=== PATIENT | male | born 1945 | race Caucasian/White ===

== ENCOUNTER 2017-11-12 11:33 | Emergency (ER) | payer MEDICARE, SELFPAY ==
[2017-11-12 12:02] VITALS: BP 154/74; PULSE 82; RESP 16; TEMP 36.7; O2SAT 99; BMI 23.6
[2017-11-12 12:35] LABS: AMB Influenza A Antigen Positive (Negative); AMB Influenza B Antigen Negative (Negative)
[2017-11-12 12:40] LABS: Strep Scrn Group A (Rapid) Negative (Negative)
--- NOTE | 2017-11-12 14:09 | HMH.EDGENADL ---
ED Disposition Clinical Impression: Influenza A Disposition: Home, Self-Care Condition on Discharge: Good Instructions: Influenza Additional Instructions: influenza instruction Prescriptions: Oseltamivir Phosphate [Tamiflu 75mg Capsule] 75 mg PO BID #10 capsule Referrals: Paco Wheat MD [Primary Care Provider] - - Critical Care Critical Care Time: No Attestation: On 11/12/17, the high probability of a clinically significant, sudden or life threatening deterioration of the following system(s) required my full and direct attention, intervention and personal management. The time I documented below is in addition to time spent performing reported procedures but includes the following listed in this critical care notation. Medical Decision Making Vital Signs: 11/12/17 12:02 Temperature 98.1 F Temperature Source Oral Pulse Rate [Right Radial] 82 Respiratory Rate 16 Blood Pressure [Right Arm] 154/74 Blood Pressure Mean [Right Arm] 100 Blood Pressure Source [Right Arm] Automatic Cuff Blood Pressure Position [Right Arm] Sitting 02 Sat by Pulse Oximetry 99 Oxygen Delivery Method Room Air - Lab Data influenza a positive Orders (Tests/Meds): ORDERS Category Date Time Status Strep Screen Confirmation Stat Micro 11/12/17 12:13 Received - Iain Inquiry Pt receiving controlled substance: No General Adult HPI - General Chief complaint: Ear Stated complaint: cough sore throat Mode of Arrival: Ambulatory Limitations: No Limitations Description of Symptoms (Recalled from ER Triage Doc. by RN): cough, congestion, sore throat - History of Present Illness Onset (ago): hour(s) (36) Location: head, neck, chest Radiation: non-radiation Severity: moderate Severity scale (1-10): 4 Quality: constant Consistency: constant Relieving factors: none Exacerbating factors: none Associated symptoms: cough Treatments prior to arrival: none - Related Data Previous Rx's Medication Instructions Recorded Oseltamivir Phosphate [Tamiflu 75 mg PO BID #10 cap 11/12/17 75mg Capsule] Allergies Allergy/AdvReac Type Severity Reaction Status Date / Time No Known Allergies Allergy Verified 11/12/17 12:01 [facility] History Medical History: Reports:: Diabetes Mellitus Type 2 Other Surgeries: No: Pacemaker - *Social History Alcohol Intake: never - Psychiatric History Expresses thoughts of harming self/others: None Suicide Plan Description: No Plan ROS Obtained: Yes All systems reviewed & no additional complaints except - Constitutional Reports chills - Respiratory Reports cough Physical Exam - General General appearance: alert, in no apparent distress - Head Head exam: atraumatic, normocephalic, normal inspection - Eye Eye exam: Present: normal appearance, PERRL, EOMI - ENT ENT exam: Present: normal exam, normal oropharynx, mucous membranes moist, TM's normal bilaterally, normal external ear exam - Neck Neck exam: Present: normal inspection, full ROM, trachea midline - Chest Chest inspection: Present: normal inspection, symmetric chest wall rise. Absent: tenderness - Respiratory Respiratory exam: Present: normal lung sounds bilaterally. Absent: respiratory distress - Cardiovascular Cardiovascular exam: Present: regular rate, normal rhythm. Absent: JVD - Abdominal Exam Abdominal exam: Present: soft, normal bowel sounds. Absent: distention, tenderness, guarding - Extremities Exam Extremities exam: Present: normal inspection, full ROM, normal capillary refill. Absent: calf tenderness - Back Exam Back exam: Present: normal inspection. Absent: tenderness - Neurological Exam Neurological exam: Present: alert, oriented X3 - Psychiatric Psychiatric exam: Present: normal affect, normal mood - Skin Skin exam: Present: warm, dry, intact, normal color
--- NOTE | 2017-11-12 14:12 | ED_ITS ---
ED Disposition Clinical Impression: Influenza A Disposition: Home, Self-Care Condition on Discharge: Good Instructions: Influenza Additional Instructions: influenza instruction Prescriptions: Oseltamivir Phosphate [Tamiflu 75mg Capsule] 75 mg PO BID #10 capsule Referrals: Paco Wheat MD [Primary Care Provider] - - Critical Care Critical Care Time: No Attestation: On 11/12/17, the high probability of a clinically significant, sudden or life threatening deterioration of the following system(s) required my full and direct attention, intervention and personal management. The time I documented below is in addition to time spent performing reported procedures but includes the following listed in this critical care notation. Medical Decision Making Vital Signs: 11/12/17 12:02 Temperature 98.1 F Temperature Source Oral Pulse Rate [Right Radial] 82 Respiratory Rate 16 Blood Pressure [Right Arm] 154/74 Blood Pressure Mean [Right Arm] 100 Blood Pressure Source [Right Arm] Automatic Cuff Blood Pressure Position [Right Arm] Sitting 02 Sat by Pulse Oximetry 99 Oxygen Delivery Method Room Air - Lab Data influenza a positive Orders (Tests/Meds): ORDERS Category Date Time Status Strep Screen Confirmation Stat Micro 11/12/17 12:13 Received - Iain Inquiry Pt receiving controlled substance: No General Adult HPI - General Chief complaint: Ear Stated complaint: cough sore throat Mode of Arrival: Ambulatory Limitations: No Limitations Description of Symptoms (Recalled from ER Triage Doc. by RN): cough, congestion , sore throat - History of Present Illness Onset (ago): hour(s) (36) Location: head, neck, chest Radiation: non-radiation Severity: moderate Severity scale (1-10): 4 Quality: constant Consistency: constant Relieving factors: none Exacerbating factors: none Associated symptoms: cough Treatments prior to arrival: none - Related Data Previous Rx's Medication Instructions Recorded Oseltamivir Phosphate [Tamiflu 75 mg PO BID #10 cap 11/12/17 75mg Capsule] Allergies Allergy/AdvReac Type Severity Reaction Status Date / Time No Known Allergies Allergy Verified 11/12/17 12:01 [facility] History Medical History: Reports:: Diabetes Mellitus Type 2 Other Surgeries: No: Pacemaker - *Social History Alcohol Intake: never - Psychiatric History Expresses thoughts of harming self/others: None Suicide Plan Description: No Plan ROS Obtained: Yes All systems reviewed & no additional complaints except - Constitutional Reports chills - Respiratory Reports cough Physical Exam - General General appearance: alert, in no apparent distress - Head Head exam: atraumatic, normocephalic, normal inspection - Eye Eye exam: Present: normal appearance, PERRL, EOMI - ENT ENT exam: Present: normal exam, normal oropharynx, mucous membranes moist, TM's normal bilaterally, normal external ear exam - Neck Neck exam: Present: normal inspection, full ROM, trachea midline - Chest Chest inspection: Present: normal inspection, symmetric chest wall rise. Absent : tenderness - Respiratory Respiratory exam: Present: normal lung sounds bilaterally. Absent: respira
[2017-11-12 14:22] VITALS: BP 124/70; PULSE 74; RESP 16; TEMP 37.3; O2SAT 98
== END 2017-11-12 14:27 | disposition home or self-care (01) ==
PROVIDERS: Emergency Provider Family Medicine; PCP Family Medicine
DX: J10.1 Influenza due to other identified influenza virus with other respiratory manifestations (principal); E11.9 Type 2 diabetes mellitus without complications; Z95.0 Presence of cardiac pacemaker
CPT/HCPCS: 87275; 87276; 87430; 99283

== ENCOUNTER → 2018-05-08 09:34 | Outpatient (CLI) | payer MEDICARE, SELFPAY ==
[2018-05-08 09:41] LABS: Microscopic, Urine URINE MICROSCOPIC (MICROSCOPIC)
[2018-05-08 10:15] LABS: Appearance,Urine CLEAR (Clear); Bilirubin,Urine Negative (Negative); Blood, Urine Negative (Negative); Color,Urine YELLOW (Yellow); Glucose,Urine (UA) Negative (Negative); Ketones,Urine Negative (Negative); Leukocyte Esterase,Urine Negative (Negative); Nitrate,Urine Negative (Negative); Protein,Urine TRACE (Negative); Urobilinogen,Urine 0.2 EU/dl (0.2)
[2018-05-08 10:30] LABS: Bacteria,Urine Trace /lpf; Hyaline Casts,Urine Occasional #/lpf (0); Squamous Epithelial Cell,Urine Occasional #/hpf (0-5)
[2018-05-08 11:01] LABS: Basophils % 0.7 % (0.1-2.0); Eosinophils # 0.4 K/mm3 (0.0-0.4); Hematocrit 43.2 % (42.0-52.0); Hemoglobin 13.7 g/dL (14.1-18.0); Lymphocytes # 1.7 K/mm3 (0.7-4.5); Lymphocytes % 27.5 K/mm3 (10-50); Mean Corpuscular HGB Conc 31.7 g/dL (31.8-35.4); Mean Corpuscular Hemoglobin 30.6 pg (27.0-31.2); Mean Corpuscular Volume 96.6 fl (80-94); Mean Platelet Volume 7.1 fl (7.4-10.4); Monocytes # 0.4 K/mm3 (0.1-1.0); Monocytes % 6.5 % (1.7-9.3); Neutrophils # 3.6 K/mm3 (1.8-7.8); Neutrophils % 59.2 % (37.0-80.0); Platelet Count 241 K/mm3 (142-424); Red Blood Count 4.48 M/mm3 (4.60-6.20); Red Cell Distribution Width 13.2 % (11.5-17.5)
[2018-05-08 12:53] LABS: Creatinine,Urine Random 137 mg/dL (20-320); Total Protein,Urine Random 31.3 mg/dL (0.0-11.9)
[2018-05-08 17:03] LABS: Albumin Level 4.2 gm/dL (3.4-5.0); Anion Gap 13.3 mEq/L (5-15); Blood Urea Nitrogen 27 mg/dL (7-18); Calcium 9.2 mg/dL (8.5-10.1); Carbon Dioxide 28 mmol/L (21.0-32.0); Chloride 103 mmol/L (98-107); Creatinine,Serum 1.73 mg/dL (0.70-1.30); Estimated Glomerular Filt Rate 39 ml/min (>60); GFR (African American) 47 ML/MIN (>60); Glucose 161 mg/dL (74-106); Potassium 4.3 mmoL/L (3.5-5.1); Sodium 140 mmol/L (136-145)
[2018-05-08 17:17] LABS: Phosphorous 3.4 mg/dL (2.4-4.9)
[2018-05-09 13:59] LABS: Parathyroid Hormone Intact 42 pg/mL (15-65); Vitamin D 25 Hydroxy 37.5 ng/mL (30.0-100.0)
== END ==
PROVIDERS: Visit Provider Internal Medicine Nephrology
DX: N18.4 Chronic kidney disease, stage 4 (severe) (principal)
CPT/HCPCS: 36415; 80069; 81001; 82570; 82652; 83970; 84155; 85025

== ENCOUNTER → 2018-05-17 10:39 | Outpatient (CLI) | payer MEDICARE, SELFPAY ==
[2018-05-17 11:12] LABS: Basophils % 0.6 % (0.1-2.0); Eosinophils # 0.3 K/mm3 (0.0-0.4); Eosinophils % 5.8 % (0.1-12.0); Hematocrit 40.4 % (42.0-52.0); Hemoglobin 12.9 g/dL (14.1-18.0); Lymphocytes # 1.4 K/mm3 (0.7-4.5); Lymphocytes % 25.6 K/mm3 (10-50); Mean Corpuscular HGB Conc 31.9 g/dL (31.8-35.4); Mean Corpuscular Hemoglobin 30.7 pg (27.0-31.2); Mean Corpuscular Volume 96.1 fl (80-94); Mean Platelet Volume 7.2 fl (7.4-10.4); Monocytes # 0.4 K/mm3 (0.1-1.0); Monocytes % 7.2 % (1.7-9.3); Neutrophils # 3.4 K/mm3 (1.8-7.8); Neutrophils % 60.9 % (37.0-80.0); Platelet Count 211 K/mm3 (142-424); Red Cell Distribution Width 13.2 % (11.5-17.5); White Blood Count 5.6 K/mm3 (4.8-10.8)
[2018-05-17 11:44] LABS: Alanine Aminotransferase 24 U/L (12-78); Albumin/Globulin Ratio 1.2 (1.1-1.8); Alkaline Phosphatase 115 U/L (46-116); Anion Gap 9.5 mEq/L (5-15); Aspartate Amino Transferase 18 U/L (15-37); Bilirubin,Total 0.4 mg/dL (0.2-1.0); Blood Urea Nitrogen 24 mg/dL (7-18); Calcium 9.1 mg/dL (8.5-10.1); Carbon Dioxide 29 mmol/L (21.0-32.0); Chloride 105 mmol/L (98-107); Creatinine,Serum 1.66 mg/dL (0.70-1.30); Estimated Glomerular Filt Rate 41 ml/min (>60); GFR (African American) 49 ML/MIN (>60); Globulin 3.3 gm/dl (1.3-3.2); Glucose 183 mg/dL (74-106); Potassium 4.5 mmoL/L (3.5-5.1); Sodium 139 mmol/L (136-145); Total Protein,Serum 7.3 gm/dL (6.4-8.2); Troponin I < 0.02 ng/ml (0.00-0.06)
== END ==
PROVIDERS: Visit Provider Nurse Practitioner
DX: R42 Dizziness and giddiness (principal)
CPT/HCPCS: 36415; 80053; 84484; 85025

== ENCOUNTER → 2018-08-12 12:36 | Outpatient (CLI) | payer MEDICARE, SELFPAY ==
--- NOTE | 2018-08-12 13:00 | US_ITS ---
US kidney retroperitoneal comp HISTORY: ITS.REASON: CKD 3 ORDERING PHYSICIAN: Henrik Edwards PATIENT AGE: 73 years Comparison: None FINDINGS: RIGHT KIDNEY:Unremarkable. Normal size and echogenicity. No hydronephrosis 9 x 4 x 5 cm LEFT KIDNEY:Unremarkable. No hydronephrosis. Normal size and echogenicity. 9 x 5 x 5 cm OTHER FINDINGS: No other pertinent findings IMPRESSION: Unremarkable bilateral renal ultrasound
[2018-08-12 13:05] LABS: Microscopic, Urine URINE MICROSCOPIC (MICROSCOPIC)
[2018-08-12 13:29] LABS: Appearance,Urine CLEAR (Clear); Bilirubin,Urine Negative (Negative); Blood, Urine TRACE-I (Negative); Color,Urine YELLOW (Yellow); Glucose,Urine (UA) TRACE (Negative); Ketones,Urine Negative (Negative); Leukocyte Esterase,Urine Negative (Negative); Nitrate,Urine Negative (Negative); Protein,Urine TRACE (Negative); Urobilinogen,Urine 0.2 EU/dl (0.2)
[2018-08-12 14:03] LABS: Bacteria,Urine Trace /lpf; Squamous Epithelial Cell,Urine Occasional #/hpf (0-5); WBC,Urine Occasional #/hpf (0-3)
[2018-08-12 15:00] LABS: Albumin Level 3.7 gm/dL (3.4-5.0); Anion Gap 14.1 mEq/L (5-15); Blood Urea Nitrogen 26 mg/dL (7-18); Calcium 8.8 mg/dL (8.5-10.1); Carbon Dioxide 28 mmol/L (21.0-32.0); Chloride 103 mmol/L (98-107); Creatinine,Serum 1.68 mg/dL (0.70-1.30); Estimated Glomerular Filt Rate 40 ml/min (>60); GFR (African American) 49 ML/MIN (>60); Glucose 172 mg/dL (74-106); Phosphorous 3.3 mg/dL (2.4-4.9); Potassium 4.1 mmoL/L (3.5-5.1); Sodium 141 mmol/L (136-145)
[2018-08-14 11:28] LABS: Vitamin D 25 Hydroxy 26.6 ng/mL (30.0-100.0)
== END ==
PROVIDERS: PCP Family Medicine; Visit Provider Internal Medicine Nephrology
DX: N18.3 Chronic kidney disease, stage 3 (moderate) (principal)
CPT/HCPCS: 36415; 76770; 80069; 81001; 82652

== ENCOUNTER → 2018-08-15 13:29 | Outpatient (POV) | payer MEDICARE, SELFPAY | PROVIDERS: PCP Family Medicine; Visit Provider Internal Medicine Nephrology | DX: Z00.00 Encounter for general adult medical examination without abnormal findings (principal) ==

== ENCOUNTER → 2018-08-23 09:38 | Outpatient (POV) | payer MEDICARE, SELFPAY | PROVIDERS: PCP Family Medicine; Visit Provider Podiatrist | DX: Z00.00 Encounter for general adult medical examination without abnormal findings (principal) ==

== ENCOUNTER → 2018-12-13 11:20 | Outpatient (CLI) | payer MEDICARE, SELFPAY ==
[2018-12-13 11:27] LABS: Microscopic, Urine URINE MICROSCOPIC (MICROSCOPIC)
[2018-12-13 11:42] LABS: Appearance,Urine CLEAR (Clear); Bilirubin,Urine Negative (Negative); Blood, Urine Negative (Negative); Color,Urine YELLOW (Yellow); Glucose,Urine (UA) Negative (Negative); Ketones,Urine Negative (Negative); Leukocyte Esterase,Urine Negative (Negative); Nitrate,Urine Negative (Negative); Protein,Urine Negative (Negative); Urobilinogen,Urine 0.2 EU/dl (0.2)
[2018-12-13 11:57] LABS: Basophils # 0.1 K/mm3 (0-0.2); Basophils % 0.8 % (0.1-2.0); Eosinophils # 0.3 K/mm3 (0.0-0.4); Eosinophils % 4.7 % (0.1-12.0); Hematocrit 37.5 % (42.0-52.0); Hemoglobin 12.2 g/dL (14.1-18.0); Lymphocytes % 30.6 % (10-50); Mean Corpuscular HGB Conc 32.5 g/dL (31.8-35.4); Mean Corpuscular Volume 98.3 fl (80-94); Mean Platelet Volume 7.2 fl (7.4-10.4); Monocytes # 0.5 K/mm3 (0.1-1.0); Monocytes % 7.3 % (1.7-9.3); Neutrophils # 3.6 K/mm3 (1.8-7.8); Neutrophils % 56.5 % (37.0-80.0); Platelet Count 221 K/mm3 (142-424); Red Blood Count 3.81 M/mm3 (4.60-6.20); Red Cell Distribution Width 13.5 % (11.5-17.5); White Blood Count 6.5 K/mm3 (4.8-10.8)
[2018-12-13 12:21] LABS: Bacteria,Urine Trace /lpf; Mucus,Urine 1+ /lpf; Squamous Epithelial Cell,Urine Occasional #/hpf (0-5)
[2018-12-13 13:04] LABS: Albumin Level 3.8 gm/dL (3.4-5.0); Anion Gap 15.8 mEq/L (5-15); Blood Urea Nitrogen 37 mg/dL (7-18); Calcium 8.8 mg/dL (8.5-10.1); Carbon Dioxide 26 mmol/L (21.0-32.0); Chloride 102 mmol/L (98-107); Creatinine,Serum 2.16 mg/dL (0.70-1.30); Estimated Glomerular Filt Rate 30 ml/min (>60); GFR (African American) 36 ML/MIN (>60); Glucose 144 mg/dL (74-106); Phosphorous 3.2 mg/dL (2.4-4.9); Potassium 4.8 mmoL/L (3.5-5.1); Sodium 139 mmol/L (136-145)
[2018-12-13 14:30] LABS: Creatinine,Urine Random 103 mg/dL (20-320)
== END ==
PROVIDERS: Visit Provider Internal Medicine Nephrology
DX: N18.3 Chronic kidney disease, stage 3 (moderate) (principal)
CPT/HCPCS: 36415; 80069; 81001; 82570; 84155; 85025

== ENCOUNTER → 2018-12-19 13:24 | Outpatient (POV) | payer MEDICARE, SELFPAY | PROVIDERS: Visit Provider Internal Medicine Nephrology | DX: Z00.00 Encounter for general adult medical examination without abnormal findings (principal) ==

== ENCOUNTER → 2019-03-06 07:38 | Outpatient (CLI) | payer MEDICARE, SELFPAY ==
--- NOTE | 2019-03-06 07:41 | AS_ITS ---
Renal Arterial Duplex Indications: 405.91 Unspecified renovascular hypertension. IMPRESSIONS Normal bilateral renal artery evaluation. History: Risk factors: Hypertension. Diabetes mellitus. Renal disease. Complete renal arterial duplex. Duplex scan and Doppler flow study including spectral analysis, color and fuentes scale imaging. Height: Height: 175.3cm. Height: 69in. Weight: Weight: 75.8kg. Weight: 166.7lb. Body mass index: BMI: 24.7kg/m^2. Body surface area: BSA: 1.93m^2. Location: Vascular laboratory. Patient status: Outpatient. Tables: Arterial flow: + +--------+--------+ Location V sys V ed + +--------+--------+ Right renal - proximal 86cm/s 22.5cm/s + +--------+--------+ Right renal - mid 102cm/s 22.4cm/s + +--------+--------+ Right renal - distal 80.9cm/s 18.4cm/s + +--------+--------+ Left renal - proximal 115cm/s 14.7cm/s + +--------+--------+ Left renal - mid 79cm/s 18.3cm/s + +--------+--------+ Left renal - distal 114cm/s 22.2cm/s + +--------+--------+ Right renal-origin 96.8cm/s 23.5cm/s + +--------+--------+ Left renal-origin 108cm/s 18.6cm/s + +--------+--------+ Aorta-prox 141cm/s -------- + +--------+--------+ Renal anatomy: + +-----+------+ Left Right + +-----+------+ Long axis 9.6cm 10.2cm + +-----+------+ Short axis 6.6cm 6.6cm + +-----+------+ Cortical thickness 1.4cm 1.2cm + +-----+------+ Velocity ratios: + +-----+ V sys + +-----+ Right renal/aortic 0.7 + +-----+ Left renal/aortic 0.8 + +-----+ (Report amended ) Electronically signed by: Jovanny Spring [id number]
== END ==
PROVIDERS: PCP Family Medicine; Visit Provider Physician Assistant
DX: I10 Essential (primary) hypertension (principal)
CPT/HCPCS: 93976

== ENCOUNTER → 2019-04-14 09:28 | Outpatient (CLI) | payer MEDICARE, SELFPAY ==
[2019-04-14 09:32] LABS: Microscopic, Urine URINE MICROSCOPIC (MICROSCOPIC)
[2019-04-14 10:23] LABS: Appearance,Urine CLEAR (Clear); Bilirubin,Urine Negative (Negative); Blood, Urine Negative (Negative); Color,Urine YELLOW (Yellow); Glucose,Urine (UA) Negative (Negative); Ketones,Urine Negative (Negative); Leukocyte Esterase,Urine Negative (Negative); Nitrate,Urine Negative (Negative); Protein,Urine Negative (Negative); Urobilinogen,Urine 0.2 EU/dl (0.2)
[2019-04-14 10:26] LABS: Creatinine,Urine Random 40 mg/dL (20-320); Total Protein,Urine Random 19.8 mg/dL (0.0-11.9)
[2019-04-14 10:30] LABS: Basophils % 0.8 % (0.1-2.0); Eosinophils # 0.3 K/mm3 (0.0-0.4); Hematocrit 35.7 % (42.0-52.0); Lymphocytes % 38.9 % (10-50); Mean Corpuscular HGB Conc 33.6 g/dL (31.8-35.4); Mean Corpuscular Hemoglobin 31.5 pg (27.0-31.2); Mean Corpuscular Volume 93.8 fl (80-94); Mean Platelet Volume 7.1 fl (7.4-10.4); Monocytes # 0.3 K/mm3 (0.1-1.0); Neutrophils # 2.5 K/mm3 (1.8-7.8); Neutrophils % 48.2 % (37.0-80.0); Platelet Count 194 K/mm3 (142-424); Red Blood Count 3.81 M/mm3 (4.60-6.20); Red Cell Distribution Width 12.9 % (11.5-17.5); White Blood Count 5.2 K/mm3 (4.8-10.8)
[2019-04-14 10:31] LABS: Bacteria,Urine Trace /lpf; Squamous Epithelial Cell,Urine Occasional #/hpf (0-5)
[2019-04-14 10:56] LABS: Albumin Level 3.6 gm/dL (3.4-5.0); Blood Urea Nitrogen 28 mg/dL (7-18); Calcium 9.4 mg/dL (8.5-10.1); Carbon Dioxide 28 mmol/L (21.0-32.0); Chloride 104 mmol/L (98-107); Creatinine,Serum 1.63 mg/dL (0.70-1.30); Estimated Glomerular Filt Rate 42 ml/min (>60); GFR (African American) 50 ML/MIN (>60); Glucose 107 mg/dL (74-106); Phosphorous 3.5 mg/dL (2.4-4.9); Sodium 141 mmol/L (136-145)
== END ==
PROVIDERS: Visit Provider Internal Medicine Nephrology
DX: N18.3 Chronic kidney disease, stage 3 (moderate) (principal)
CPT/HCPCS: 36415; 80069; 81001; 82570; 84155; 85025

== ENCOUNTER → 2019-11-06 14:04 | Outpatient (CLI) | payer MEDICARE, SELFPAY ==
[2019-11-06 14:07] LABS: Microscopic, Urine URINE MICROSCOPIC (MICROSCOPIC)
[2019-11-06 14:38] LABS: Basophils % 0.7 % (0.1-2.0); Eosinophils # 0.3 K/mm3 (0.0-0.4); Eosinophils % 5.1 % (0.1-12.0); Hematocrit 36.9 % (42.0-52.0); Hemoglobin 12.1 g/dL (14.1-18.0); Lymphocytes # 1.9 K/mm3 (0.7-4.5); Lymphocytes % 32.4 % (10-50); Mean Corpuscular HGB Conc 32.8 g/dL (31.8-35.4); Mean Corpuscular Hemoglobin 32.9 pg (27.0-31.2); Mean Corpuscular Volume 100.2 fl (80-94); Mean Platelet Volume 7.5 fl (7.4-10.4); Monocytes # 0.3 K/mm3 (0.1-1.0); Monocytes % 5.8 % (1.7-9.3); Neutrophils # 3.3 K/mm3 (1.8-7.8); Platelet Count 244 K/mm3 (142-424); Red Blood Count 3.68 M/mm3 (4.60-6.20); Red Cell Distribution Width 12.7 % (11.5-17.5); White Blood Count 5.9 K/mm3 (4.8-10.8)
[2019-11-06 14:49] LABS: Appearance,Urine CLEAR (Clear); Bilirubin,Urine Negative (Negative); Blood, Urine Negative (Negative); Color,Urine YELLOW (Yellow); Glucose,Urine (UA) 3+ (Negative); Ketones,Urine Negative (Negative); Leukocyte Esterase,Urine Negative (Negative); Nitrate,Urine Negative (Negative); Protein,Urine Negative (Negative); Specific Gravity, Urine 1.015 (1.005-1.030); Urobilinogen,Urine 0.2 EU/dl (0.2)
[2019-11-06 15:00] LABS: Squamous Epithelial Cell,Urine Occasional #/hpf (0-5); WBC,Urine Occasional #/hpf (0-3)
[2019-11-06 15:45] LABS: Albumin Level 3.8 gm/dL (3.4-5.0); Anion Gap 17.8 mEq/L (5-15); Blood Urea Nitrogen 27 mg/dL (7-18); Calcium 8.3 mg/dL (8.5-10.1); Carbon Dioxide 22 mmol/L (21.0-32.0); Chloride 102 mmol/L (98-107); Creatinine,Serum 1.81 mg/dL (0.70-1.30); Estimated Glomerular Filt Rate 37 ml/min (>60); GFR (African American) 44 ML/MIN (>60); Glucose 277 mg/dL (74-106); Phosphorous 3.1 mg/dL (2.4-4.9); Potassium 4.8 mmoL/L (3.5-5.1); Sodium 137 mmol/L (136-145)
[2019-11-06 20:49] LABS: Creatinine,Urine Random 50 mg/dL (20-320); Total Protein,Urine Random 20.3 mg/dL (0.0-11.9)
[2019-11-08 11:11] LABS: Parathyroid Hormone Intact 63 pg/mL (15-65); Vitamin D 25 Hydroxy 25.9 ng/mL (30.0-100.0)
[2019-11-09 16:27] LABS: Calcium, Ionized 4.9 mg/dL (4.5-5.6)
== END ==
PROVIDERS: Visit Provider Internal Medicine Nephrology
DX: N18.3 Chronic kidney disease, stage 3 (moderate) (principal)
CPT/HCPCS: 36415; 80069; 81001; 82330; 82570; 82652; 83970; 84155; 85025

== ENCOUNTER → 2019-11-13 13:05 | Outpatient (POV) | payer MEDICARE, SELFPAY | PROVIDERS: Visit Provider Internal Medicine Nephrology | DX: Z00.00 Encounter for general adult medical examination without abnormal findings (principal) ==

== ENCOUNTER → 2019-12-26 09:11 | Outpatient (CLI) | payer MEDICARE, SELFPAY ==
--- NOTE | 2019-12-26 09:15 | US_ITS ---
PROCEDURE: US ABDOMEN LIMITED CLINICAL INDICATION: SOFT TISSUE MASS LLQ Soft tissue mass left lateral abdominal wall COMPARISON: No exams were available for comparison FINDINGS: Ultrasound is performed of a palpable nodule in the left lateral mid abdominal wall. In this region there is an oval area of heterogeneous decreased echogenicity measuring 4 cm longitudinal and 1 cm thick and 3 cm transverse. This is in the subcutaneous tissues. This does not represent a cystic collection and has a solid appearance. This does not have the usual appearance of a lipoma being more hypoechoic than a routine lipoma IMPRESSION: Hypoechoic subcutaneous mass is present in the left mid abdominal wall. Etiology is indeterminate. The patient reports having given insulin shots at this region. This could be related to a fibrous/inflammatory reaction. An atypical lipoma, or nerve sheath type tumor such as a schwannoma is a consideration. Soft tissue neoplasm would be included in the differential diagnosis. Ultrasound-guided FNA could be performed if clinically desired. Dictated by: Jovanny Spring MD 12/26/2019 15:07 Electronically signed by Jovanny Spring MD in [place] 12/26/2019 15:07
== END ==
PROVIDERS: PCP Family Medicine; Visit Provider Family Medicine
DX: R19.04 Left lower quadrant abdominal swelling, mass and lump (principal)
CPT/HCPCS: 76705

== ENCOUNTER → 2020-01-07 09:56 | Outpatient (CLI) | payer MEDICARE, SELFPAY ==
--- NOTE | 2020-01-07 10:00 | XR_ITS ---
PROCEDURE: XR CHEST 2V CLINICAL HISTORY: COUGH COMPARISON: No exams were available for comparison FINDINGS: Prior CABG. Normal heart size. There is some faint nodularity in the right upper lobe inferiorly. This could be due to some scarring or nodular type infiltrate/tree in bud appearance. There is some increased density in the right suprahilar region No acute bony abnormalities. IMPRESSION: Possible nodular type tree-in-bud infiltrate right upper lobe. Suggest following till clear. There is some slight increased density in the right suprahilar region. If these findings do not clear then chest CT with contrast may be needed. Dictated by: Jovanny Spring MD 01/07/2020 12:02 Electronically signed by Jovanny Spring MD in [place] 01/07/2020 12:02
== END ==
PROVIDERS: PCP Family Medicine; Visit Provider Family Medicine
DX: R05 Cough (principal)
CPT/HCPCS: 71046

== ENCOUNTER → 2020-01-19 12:07 | Outpatient (CLI) | payer MEDICARE, SELFPAY ==
--- NOTE | 2020-01-19 12:14 | XR_ITS ---
PROCEDURE: XR CHEST 2V CLINICAL HISTORY: PNEUMONIA Follow-up pneumonia COMPARISON: XR CHEST 2V from 01/07/2020 FINDINGS: Prior CABG. Normal heart size. There are 2 small nodular opacities in the right mid upper lung zone probably not significantly changed. No lobar consolidation or collapse. Previously suspected tree in bud pattern less apparent. Remaining lungs are clear. No acute bony abnormalities. IMPRESSION: No acute finding Dictated by: Jovanny Spring MD 01/19/2020 14:33 Electronically signed by Jovanny Spring MD in [place] 01/19/2020 14:33
== END ==
PROVIDERS: PCP Family Medicine; Visit Provider Nurse Practitioner
DX: J18.9 Pneumonia, unspecified organism (principal)
CPT/HCPCS: 71046

== ENCOUNTER → 2020-01-26 14:13 | Outpatient (CLI) | payer MEDICARE, SELFPAY ==
--- NOTE | 2020-01-26 14:24 | CT_ITS ---
PROCEDURE: CT CHEST WO CON CLINICAL INDICATION: PNEUMONIA DUE TO INFECTIOUS ORGANISM Follow-up pneumonia COMPARISON: XR CHEST 2V from 01/19/2020 TECHNIQUE: Axial images obtained with sagittal and coronal reformats. All CT scans at the facility use one or more dose reduction, viz: automated exposure control, ma/kV adjustment per patient size (including targeted exams where dose is matched to indication, i.e. head), or iterative reconstruction technique. FINDINGS: HEART AND MEDIASTINAL STRUCTURES: Prior CABG. Normal heart size. No mediastinal or hilar adenopathy or mass. Central airways are unremarkable LUNGS AND PLEURAL SPACES: Calcified granulomas present in the right upper lobe. There are few scattered areas of scarring the. There is some ground-glass attenuation within the lingula nonspecific and could be related to patchy area of infiltrate. No effusions. BONY STRUCTURES: Degenerative changes thoracic spine UPPER ABDOMEN: Moderate amount of retained colonic feces. There is a nonspecific 4 mm hypodensity in the left hepatic lobe centrally image 60 series 3 too small to categorize. There is fatty infiltration of the pancreas ADDITIONAL FINDINGS: No other significant abnormalities. IMPRESSION: 1. Subtle ground-glass attenuation within the lingula nonspecific and could be due to a patchy area of infiltrate which could be seen with viral pneumonitis. 2. There are scattered areas of scarring with evidence of old granulomatous disease. 3. Other nonacute findings as described above Dictated by: Jovanny Spring MD 01/27/2020 08:29 Electronically signed by Jovanny Spring MD in [place] 01/27/2020 08:29
== END ==
PROVIDERS: PCP Family Medicine; Visit Provider Nurse Practitioner
DX: J18.9 Pneumonia, unspecified organism (principal)
CPT/HCPCS: 71250

== ENCOUNTER → 2020-05-17 13:10 | Outpatient (CLI) | payer MEDICARE, SELFPAY ==
[2020-05-17 13:14] LABS: Microscopic, Urine URINE MICROSCOPIC (MICROSCOPIC)
[2020-05-17 14:12] LABS: Appearance,Urine CLEAR (Clear); Bilirubin,Urine Negative (Negative); Blood, Urine Negative (Negative); Color,Urine YELLOW (Yellow); Glucose,Urine (UA) Negative (Negative); Ketones,Urine Negative (Negative); Leukocyte Esterase,Urine Negative (Negative); Nitrate,Urine Negative (Negative); PH,Urine 6.5 (5.0-8.5); Protein,Urine Negative (Negative); Urobilinogen,Urine 0.2 EU/dl (0.2)
[2020-05-17 14:29] LABS: Creatinine,Urine Random 37 mg/dL (Not Estab.)
[2020-05-17 14:35] LABS: Albumin Level 4.4 g/dl (3.5-5.0); Anion Gap 14.6 mEq/L (5-15); Blood Urea Nitrogen 34 mg/dl (9-20); Carbon Dioxide 28 mmol/L (22.0-30.0); Chloride 98 mmol/L (98-107); Estimated Glomerular Filt Rate 33 ml/min (>60); GFR (African American) 40 ML/MIN (>60); Glucose 75 mg/dl (74-100); Phosphorous 3.4 mg/dl (2.5-4.5); Potassium 4.6 mmoL/L (3.5-5.1); Sodium 136 mmol/L (136-145)
[2020-05-17 14:58] LABS: Basophils # 0.1 K/mm3 (0-0.2); Basophils % 0.9 % (0.1-2.0); Eosinophils % 11.6 % (0.1-12.0); Hematocrit 31.7 % (42.0-52.0); Lymphocytes # 2.5 K/mm3 (0.7-4.5); Lymphocytes % 29.1 % (10-50); Mean Corpuscular HGB Conc 37.8 g/dL (31.8-35.4); Mean Corpuscular Hemoglobin 36.8 pg (27.0-31.2); Mean Corpuscular Volume 97.4 fl (80-94); Mean Platelet Volume 6.9 fl (7.4-10.4); Monocytes # 0.5 K/mm3 (0.1-1.0); Monocytes % 5.2 % (1.7-9.3); Neutrophils # 4.6 K/mm3 (1.8-7.8); Neutrophils % 53.2 % (37.0-80.0); Platelet Count 267 K/mm3 (142-424); Red Blood Count 3.26 M/mm3 (4.60-6.20); Red Cell Distribution Width 13.2 % (11.5-17.5); White Blood Count 8.7 K/mm3 (4.8-10.8)
[2020-05-17 15:21] LABS: Bacteria,Urine Trace /lpf; WBC,Urine Occasional #/hpf (0-3)
== END ==
PROVIDERS: Visit Provider Internal Medicine Nephrology
DX: N18.3 Chronic kidney disease, stage 3 (moderate) (principal)
CPT/HCPCS: 36415; 80069; 81001; 82570; 84155; 85025

== ENCOUNTER → 2020-05-24 13:10 | Outpatient (POV) | payer MEDICARE, SELFPAY | PROVIDERS: Visit Provider Internal Medicine Nephrology | DX: Z00.00 Encounter for general adult medical examination without abnormal findings (principal) ==

== ENCOUNTER → 2020-12-13 10:21 | Outpatient (CLI) | payer MEDICARE, SELFPAY ==
[2020-12-13 10:34] LABS: Microscopic, Urine URINE MICROSCOPIC (MICROSCOPIC)
[2020-12-13 11:05] LABS: Appearance,Urine CLEAR (Clear); Bilirubin,Urine Negative (Negative); Blood, Urine Negative (Negative); Color,Urine YELLOW (Yellow); Glucose,Urine (UA) Negative (Negative); Ketones,Urine Negative (Negative); Leukocyte Esterase,Urine Negative (Negative); Nitrate,Urine Negative (Negative); Protein,Urine Negative (Negative); Urobilinogen,Urine 0.2 EU/dl (0.2)
[2020-12-13 11:11] LABS: Basophils # 0.1 K/mm3 (0-0.2); Basophils % 0.7 % (0.1-2.0); Eosinophils # 0.5 K/mm3 (0.0-0.4); Eosinophils % 7.4 % (0.1-12.0); Hematocrit 42.4 % (42.0-52.0); Lymphocytes # 2.1 K/mm3 (0.7-4.5); Lymphocytes % 30.8 % (10-50); Mean Corpuscular Hemoglobin 33.1 pg (27.0-31.2); Mean Corpuscular Volume 100.2 fl (80-94); Mean Platelet Volume 7.5 fl (7.4-10.4); Monocytes # 0.4 K/mm3 (0.1-1.0); Monocytes % 5.5 % (1.7-9.3); Neutrophils # 3.8 K/mm3 (1.8-7.8); Neutrophils % 55.6 % (37.0-80.0); Platelet Count 226 K/mm3 (142-424); Red Blood Count 4.24 M/mm3 (4.60-6.20); Red Cell Distribution Width 13.2 % (11.5-17.5); White Blood Count 6.9 K/mm3 (4.8-10.8)
[2020-12-13 11:13] LABS: Creatinine,Urine Random 52 mg/dL (Not Estab.)
[2020-12-13 11:40] LABS: Albumin Level 4.7 g/dl (3.5-5.0); Anion Gap 13.3 mEq/L (5-15); Blood Urea Nitrogen 33 mg/dl (9-20); Carbon Dioxide 29 mmol/L (22.0-30.0); Chloride 101 mmol/L (98-107); Estimated Glomerular Filt Rate 39 ml/min (>60); GFR (African American) 48 ML/MIN (>60); Glucose 99 mg/dl (74-100); Phosphorous 3.2 mg/dl (2.5-4.5); Potassium 4.3 mmoL/L (3.5-5.1); Sodium 139 mmol/L (136-145)
[2020-12-13 11:53] LABS: Intact Parathyroid Hormone 55.8 pg/mL (7.5-53.5)
[2020-12-13 11:57] LABS: 25-OH Vitamin D, Total 25.8 ng/mL (30-100)
== END ==
PROVIDERS: Visit Provider Internal Medicine Nephrology
DX: N18.30 Chronic kidney disease, stage 3 unspecified (principal)
CPT/HCPCS: 36415; 80069; 81001; 82306; 82570; 83970; 84155; 85025

== ENCOUNTER → 2021-06-13 09:20 | Outpatient (CLI) | payer MEDICARE, SELFPAY ==
[2021-06-13 09:23] LABS: Microscopic, Urine URINE MICROSCOPIC (MICROSCOPIC)
[2021-06-13 09:59] LABS: Appearance,Urine CLEAR (Clear); Bilirubin,Urine Negative (Negative); Blood, Urine Negative (Negative); Color,Urine YELLOW (Yellow); Glucose,Urine (UA) 2+ (Negative); Ketones,Urine Negative (Negative); Leukocyte Esterase,Urine Negative (Negative); Nitrate,Urine Negative (Negative); Protein,Urine Negative (Negative); Urobilinogen,Urine 0.2 EU/dl (0.2)
[2021-06-13 10:02] LABS: Basophils # 0.1 K/mm3 (0-0.2); Eosinophils # 0.4 K/mm3 (0.0-0.4); Eosinophils % 6.2 % (0.1-12.0); Hematocrit 39.4 % (42.0-52.0); Hemoglobin 13.1 g/dL (14.1-18.0); Lymphocytes # 2.1 K/mm3 (0.7-4.5); Lymphocytes % 37.8 % (10-50); Mean Corpuscular HGB Conc 33.3 g/dL (31.8-35.4); Mean Corpuscular Hemoglobin 32.3 pg (27.0-31.2); Mean Corpuscular Volume 97.1 fl (80-94); Mean Platelet Volume 7.3 fl (7.4-10.4); Monocytes # 0.2 K/mm3 (0.1-1.0); Monocytes % 3.7 % (1.7-9.3); Neutrophils # 2.8 K/mm3 (1.8-7.8); Neutrophils % 51.3 % (37.0-80.0); Platelet Count 196 K/mm3 (142-424); Red Blood Count 4.06 M/mm3 (4.60-6.20); Red Cell Distribution Width 13.5 % (11.5-17.5); White Blood Count 5.5 K/mm3 (4.8-10.8)
[2021-06-13 10:22] LABS: Squamous Epithelial Cell,Urine Occasional #/hpf (0-5)
[2021-06-13 10:37] LABS: Chloride 105 mmol/L (98-107); Sodium 141 mmol/L (136-145)
[2021-06-13 10:38] LABS: Albumin Level 4.3 g/dl (3.5-5.0); Potassium 4.4 mmoL/L (3.5-5.1)
[2021-06-13 10:40] LABS: Blood Urea Nitrogen 24 mg/dl (9-20)
[2021-06-13 10:41] LABS: Calcium 9.3 mg/dl (8.4-10.2); Carbon Dioxide 27 mmol/L (22.0-30.0); Estimated Glomerular Filt Rate 39 ml/min (>60); GFR (African American) 48 ML/MIN (>60); Glucose 207 mg/dl (74-100); Phosphorous 2.6 mg/dl (2.5-4.5)
[2021-06-13 11:06] LABS: Creatinine,Urine Random 27 mg/dL (Not Estab.)
[2021-06-13 14:39] LABS: Anion Gap 13.4 mEq/L (5-15)
== END ==
PROVIDERS: Visit Provider Internal Medicine Nephrology
DX: N18.30 Chronic kidney disease, stage 3 unspecified (principal)
CPT/HCPCS: 36415; 80069; 81001; 82570; 84155; 85025

== ENCOUNTER → 2021-06-20 14:34 | Outpatient (POV) | payer MEDICARE, SELFPAY | PROVIDERS: Visit Provider Internal Medicine Nephrology | DX: Z00.00 Encounter for general adult medical examination without abnormal findings (principal) ==

== ENCOUNTER → 2021-12-12 09:55 | Outpatient (CLI) | payer MEDICARE, SELFPAY ==
[2021-12-13 06:48] LABS: Covid-19 Nasal PCR Sendout Lex NOT DETECTED
== END ==
PROVIDERS: PCP Family Medicine; Visit Provider Nurse Practitioner
DX: Z20.822 Contact with and (suspected) exposure to COVID-19 (principal)
CPT/HCPCS: C9803; U0004; U0005

== ENCOUNTER → 2022-01-09 10:01 | Outpatient (CLI) | payer MEDICARE, SELFPAY ==
[2022-01-09 10:10] LABS: Microscopic, Urine URINE MICROSCOPIC (MICROSCOPIC)
[2022-01-09 10:36] LABS: Appearance,Urine CLEAR (Clear); Bilirubin,Urine Negative (Negative); Blood, Urine Negative (Negative); Color,Urine YELLOW (Yellow); Glucose,Urine (UA) TRACE (Negative); Ketones,Urine Negative (Negative); Leukocyte Esterase,Urine Negative (Negative); Nitrate,Urine Negative (Negative); PH,Urine 5.5 (5.0-8.5); Protein,Urine Negative (Negative); Urobilinogen,Urine 0.2 EU/dl (0.2)
[2022-01-09 10:37] LABS: Hematocrit 38.1 % (42.0-52.0); Hemoglobin 13.5 g/dL (14.1-18.0); Mean Corpuscular HGB Conc 35.4 g/dL (31.8-35.4); Mean Corpuscular Hemoglobin 35.2 pg (27.0-31.2); Mean Corpuscular Volume 99.3 fl (80-94); Platelet Count 186 K/mm3 (142-424); Red Blood Count 3.84 M/mm3 (4.60-6.20); Red Cell Distribution Width 12.7 % (11.5-17.5); White Blood Count 5.5 K/mm3 (4.8-10.8)
[2022-01-09 10:45] LABS: Creatinine,Urine Random 46 mg/dL (Not Estab.)
[2022-01-09 10:53] LABS: Squamous Epithelial Cell,Urine Occasional #/hpf (0-5)
[2022-01-09 12:21] LABS: Anion Gap 8.5 mEq/L (5-15); Blood Urea Nitrogen 27 mg/dl (9-20); Calcium 8.6 mg/dl (8.4-10.2); Carbon Dioxide 27 mmol/L (22.0-30.0); Chloride 103 mmol/L (98-107); Estimated Glomerular Filt Rate 49 ml/min (>60); GFR (African American) 59 ML/MIN (>60); Glucose 223 mg/dl (74-100); Potassium 4.5 mmoL/L (3.5-5.1); Sodium 134 mmol/L (136-145)
[2022-01-09 12:38] LABS: 25-OH Vitamin D, Total 17.6 ng/mL (30-100)
== END ==
PROVIDERS: Visit Provider Internal Medicine Nephrology
DX: N18.32 Chronic kidney disease, stage 3b (principal)
CPT/HCPCS: 36415; 80069; 81001; 82306; 82570; 83970; 84155; 85014; 85018; 85048; 85049

== ENCOUNTER → 2022-01-12 12:41 | Outpatient (POV) | payer MEDICARE, SELFPAY | PROVIDERS: Visit Provider Internal Medicine Nephrology | DX: Z00.00 Encounter for general adult medical examination without abnormal findings (principal) ==

== ENCOUNTER → 2023-02-14 08:40 | Outpatient (CLI) | payer MEDICARE, SELFPAY ==
[2023-02-14 08:55] LABS: Microscopic, Urine URINE MICROSCOPIC (MICROSCOPIC)
[2023-02-14 09:19] LABS: Basophils # 0.1 K/mm3 (0-0.2); Basophils % 1.1 % (0.1-2.0); Eosinophils # 0.4 K/mm3 (0.0-0.4); Eosinophils % 6.2 % (0.1-12.0); Hematocrit 40.5 % (42.0-52.0); Hemoglobin 13.2 g/dL (14.1-18.0); Lymphocytes # 1.7 K/mm3 (0.7-4.5); Lymphocytes % 28.3 % (10-50); Mean Corpuscular HGB Conc 32.4 g/dL (31.8-35.4); Mean Corpuscular Hemoglobin 32.3 pg (27.0-31.2); Mean Corpuscular Volume 99.6 fl (80-94); Mean Platelet Volume 7.8 fl (7.4-10.4); Monocytes # 0.4 K/mm3 (0.1-1.0); Monocytes % 6.5 % (1.7-9.3); Neutrophils # 3.4 K/mm3 (1.8-7.8); Platelet Count 230 K/mm3 (142-424); Red Blood Count 4.07 M/mm3 (4.60-6.20); Red Cell Distribution Width 13.5 % (11.5-17.5); White Blood Count 5.9 K/mm3 (4.8-10.8)
[2023-02-14 09:33] LABS: Appearance,Urine CLEAR (Clear); Bilirubin,Urine Negative (Negative); Blood, Urine Negative (Negative); Color,Urine YELLOW (Yellow); Glucose,Urine (UA) Negative (Negative); Ketones,Urine Negative (Negative); Leukocyte Esterase,Urine Negative (Negative); Nitrate,Urine Negative (Negative); Protein,Urine Negative (Negative); Urobilinogen,Urine 0.2 EU/dl (0.2)
[2023-02-14 09:48] LABS: Bacteria,Urine 2+ /lpf; Squamous Epithelial Cell,Urine Occasional #/hpf (0-5)
[2023-02-14 09:58] LABS: Creatinine,Urine Random 45 mg/dL (Not Estab.)
[2023-02-14 10:42] LABS: Albumin Level 4.2 g/dl (3.5-5.0); Chloride 103 mmol/L (98-107); Potassium 4.1 mmoL/L (3.5-5.1); Sodium 137 mmol/L (136-145)
[2023-02-14 10:44] LABS: Blood Urea Nitrogen 23 mg/dl (9-20); Estimated Glomerular Filt Rate 49 ml/min (>60); GFR (African American) 59 ML/MIN (>60)
[2023-02-14 10:45] LABS: Anion Gap 11.1 mEq/L (5-15); Carbon Dioxide 27 mmol/L (22.0-30.0); Glucose 120 mg/dl (74-100); Phosphorous 3.5 mg/dl (2.5-4.5)
[2023-02-14 17:20] LABS: Intact Parathyroid Hormone 130.3 pg/mL (7.5-53.5)
[2023-02-14 17:26] LABS: 25-OH Vitamin D, Total 58.1 ng/mL (30-100)
== END ==
PROVIDERS: PCP Nurse Practitioner Family; Visit Provider Internal Medicine Nephrology
DX: N17.9 Acute kidney failure, unspecified (principal); E55.9 Vitamin D deficiency, unspecified
CPT/HCPCS: 36415; 80069; 81001; 82306; 82570; 83970; 84155; 85025; 87086

== ENCOUNTER 2023-02-14 16:35 | Emergency (ER) | payer MEDICARE, SELFPAY ==
[2023-02-14 16:50] VITALS: PULSE 89; RESP 20; TEMP 36.8; O2SAT 96; BMI 23.6
--- NOTE | 2023-02-14 16:58 | EXP.UTC ---
Discharge Plan Disposition Patient Disposition: Home, Self-Care Condition: Good Prescriptions Prescriptions: New cefdinir 300 mg capsule 300 mg PO BID Qty: 20 0RF No Action gabapentin 300 mg capsule 300 mg PO HS insulin aspart U-100 100 unit/mL (3 mL) insulin pen 60 unit SUB-Q QPM 30 Days Qty: 18 Label Comments: insulin glargine 100 unit/mL (3 mL) insulin pen 50 unit SUB-Q DAILY 30 Days Qty: 15 Label Comments: atorvastatin 10 mg tablet 10 mg PO DAILY Ocuvite Adult 50 Plus 250-5-1 mg capsule 1 cap PO DAILY coenzyme Q10 [Co Q-10] 100 mg capsule 100 mg PO DAILY oxybutynin chloride 15 mg tablet extended release 24hr 15 mg PO DAILY metoprolol tartrate 25 mg tablet 12.5 mg PO DAILY Referrals Follow up/Referrals: Rhoda Hawk APRN [Primary Care Provider] - See instructions Activity Restrictions/Add. Instructions Additional Instructions/Restrictions: *Increase fluids. Water not Soda or Tea *Start antibiotic immediately and be sure to take as ordered for the FULL length of time although you should start to see improvement over the next 48 hours *Be SURE to follow up anytime for new or worsening symptoms with your family doctor. AND in 48 hours for urine culture results with your family doctor, if you do not have a doctor then you may call back to the [facility] for urine culture results and further treatment. We do recommend that you choose and establish care with a Primary Care Physician. ?AND follow up with them ?in 10-14 days to repeat UA to ensure infection is resolved and blood no longer present *Be sure to let your PCP know that we sent urine cultures from the [facility] so they can follow up to ensure that you area the on the correct antibiotic Call your doctor office and make appointment for 48 hours (2 days from today) ?to follow up and get the results of your urine culture and further treatment Clinical Impressions Clinical Impression: UTI (urinary tract infection) Qualifiers: Urinary tract infection type: site unspecified Hematuria presence: with hematuria Qualified Code(s): N39.0 - Urinary tract infection, site not specified Instructions Patient Instructions: DI for Urinary Tract Infection (UTI), Cefdinir Discharge ED Provider: Erika Lewis [facility] HPI General Stated complaint: poss UTI Mode of Arrival: Ambulatory Source of Information: Patient Limitations: No Limitations Time Seen by Provider: 02/14/23 16:58 Description of Symptoms (Recalled from Triage Doc. by RN): uti HEENT Symptoms (Recalled from RN notes): No Resp Symptoms (Recalled from RN notes): No Skin Symptoms (Recalled from RN notes): No MS Symptoms (Recalled from RN notes): No Functional Status (Recalled from RN notes): n/a History of Present Illness Provider Complaint: Patient states that he thinks he may have a UTI States that he has been having burning with urination and feeling of urgency and frequency that came on quickly this evening like he has had before with UTI Denies fever, or back pain Related Data Home Medications Medication Instructions Recorded Confirmed atorvastatin 10 mg tablet 10 mg PO DAILY High cholesterol 02/28/19 02/14/23 coenzyme Q10 100 mg capsule (Co 100 mg PO DAILY Supplement 02/28/19 12/20/22 Q-10) insulin aspart U-100 100 unit/mL 60 unit SUB-Q QPM Diabetes 30 days 02/28/19 02/14/23 (3 mL) subcutaneous pen #18 mL insulin glargine 100 unit/mL (3 50 unit SUB-Q DAILY Diabetes 30 02/28/19 02/14/23 mL) subcutaneous pen days #15 mL vit C,E,zinc,copper-[id number] 250 1 cap PO DAILY Supplement 02/28/19 12/20/22 mg-lutein 5 mg-zeaxanthin 1 mg capsule (Ocuvite Adult 50 Plus) oxybutynin chloride 15 mg 15 mg PO DAILY . 12/10/19 02/14/23 tablet,extended release 24 hr metoprolol tartrate 25 mg tablet 12.5 mg PO DAILY . 11/17/20 02/14/23 gabapentin 300 mg capsule 300 mg PO HS Pain 12/20/22 02/14/23 Previous Rx's Medication Instructions Recorded ce
[2023-02-14 17:03] LABS: Apearance,Urine Clear (Clear); Blood, Urine 1+ (Negative); Color,Urine Yellow (Yellow); Glucose,Urine (UA) 1+ (Negative); Ketones,Urine Negative (Negative); PH,Urine 6.5 (5.0-8.5); Protein,Urine 1+ (Negative)
[2023-02-14 17:04] LABS: Bilirubin,Urine Negative (Negative); UTC Leukocyte Esterase,Urine 1+ (Negative); UTC Nitrate,Urine Negative (Negative); Urobilinogen,Urine 0.2 EU/dl (0.2)
[2023-02-14 17:19] VITALS: BP 168/91; PULSE 89; RESP 20; TEMP 36.8; O2SAT 96
== END 2023-02-14 17:19 | disposition home or self-care (01) ==
PROVIDERS: Emergency Provider Nurse Practitioner; PCP Nurse Practitioner Family
DX: N39.0 Urinary tract infection, site not specified (principal); R31.9 Hematuria, unspecified; I10 Essential (primary) hypertension; E11.9 Type 2 diabetes mellitus without complications; E78.5 Hyperlipidemia, unspecified; Z79.4 Long term (current) use of insulin
CPT/HCPCS: 36415; 80069; 81001; 81003; 82306; 82570; 83970; 84155; 85025; 87086; 87088; 87186; 99212; 99213; 99214; G0463

== ENCOUNTER → 2023-02-19 12:57 | Outpatient (POV) | payer MEDICARE, SELFPAY | PROVIDERS: Visit Provider Internal Medicine Nephrology | DX: Z00.00 Encounter for general adult medical examination without abnormal findings (principal) ==

== ENCOUNTER 2023-03-24 17:39 | Emergency (ER) | payer MEDICARE, SELFPAY ==
--- NOTE | 2023-03-24 17:44 | CT_ITS ---
PROCEDURE INFORMATION: Exam: CT Abdomen And Pelvis With Contrast Exam date and time: 03/24/2023 6:54 PM Age: 77 years old Clinical indication: Abdominal pain; Additional info: Luq abd pain TECHNIQUE: Imaging protocol: Computed tomography of the abdomen and pelvis with contrast. Radiation optimization: All CT scans at this facility use at least one of these dose optimization techniques: automated exposure control; mA and/or kV adjustment per patient size (includes targeted exams where dose is matched to clinical indication); or iterative reconstruction. Contrast material: ISOVUE; Contrast volume: 75 ml; Contrast route: IV; REPORTING DATA: Count of CT and Cardiac NM exams in prior 12 months: This patient has received 0 known CTs and 0 known cardiac nuclear medicine studies in the 12 months prior to the current study. COMPARISON: US ABDOMEN LIMITED 12/26/2019 9:17 AM FINDINGS: Liver: Normal. No mass. Gallbladder and bile ducts: Normal. No calcified stones. No ductal dilation. Pancreas: Normal. No ductal dilation. Spleen: Normal. No splenomegaly. Adrenal glands: Normal. No mass. Kidneys and ureters: Normal. No hydronephrosis. Stomach and bowel: Constipation. No colitis. No small bowel obstruction. Appendix: No evidence of appendicitis. Intraperitoneal space: Unremarkable. No free air. No significant fluid collection. Vasculature: Unremarkable. No abdominal aortic aneurysm. Lymph nodes: Unremarkable. No enlarged lymph nodes. Urinary bladder: Unremarkable as visualized. Reproductive: Unremarkable as visualized. Bones/joints: Unremarkable. No acute fracture. Soft tissues: Unremarkable. IMPRESSION: Severe constipation otherwise no additional acute findings in the abdomen pelvis
[2023-03-24 17:49] VITALS: BP 210/110; PULSE 104; RESP 16; TEMP 36.7; O2SAT 98; BMI 20.7
[2023-03-24 18:00] VITALS: BP 189/85; PULSE 94; O2SAT 100
[2023-03-24 18:12] LABS: Basophils % 0.5 % (0.1-2.0); Eosinophils # 0.3 K/mm3 (0.0-0.4); Eosinophils % 4.5 % (0.1-12.0); Hematocrit 39.6 % (42.0-52.0); Hemoglobin 13.2 g/dL (14.1-18.0); Lymphocytes # 1.4 K/mm3 (0.7-4.5); Lymphocytes % 19.9 % (10-50); Mean Corpuscular HGB Conc 33.4 g/dL (31.8-35.4); Mean Corpuscular Hemoglobin 32.2 pg (27.0-31.2); Mean Corpuscular Volume 96.3 fl (80-94); Mean Platelet Volume 7.4 fl (7.4-10.4); Monocytes # 0.5 K/mm3 (0.1-1.0); Monocytes % 7.3 % (1.7-9.3); Neutrophils # 4.8 K/mm3 (1.8-7.8); Neutrophils % 67.8 % (37.0-80.0); Platelet Count 216 K/mm3 (142-424); Red Blood Count 4.11 M/mm3 (4.60-6.20); Red Cell Distribution Width 13.1 % (11.5-17.5); White Blood Count 7.1 K/mm3 (4.8-10.8)
[2023-03-24 18:23] LABS: Lactic Acid 1.1 mmol/L (0.7-2.1)
[2023-03-24 18:24] LABS: Alanine Aminotransferase 29 U/L (12-78); Albumin Level 4.2 g/dl (3.5-5.0); Albumin/Globulin Ratio 1.4 (1.1-1.8); Alkaline Phosphatase 153 U/L (38-126); Anion Gap 18.3 mEq/L (5-15); Aspartate Amino Transferase 39 U/L (17-59); Bilirubin,Total 0.5 mg/dl (0.2-1.3); Blood Urea Nitrogen 24 mg/dl (9-20); Calcium 8.9 mg/dl (8.4-10.2); Carbon Dioxide 26 mmol/L (22.0-30.0); Chloride 95 mmol/L (98-107); Creatinine Clearance Estimated 34 mL/min (50-200); Estimated Glomerular Filt Rate 42 ml/min (>60); GFR (African American) 51 ML/MIN (>60); Globulin 3.1 g/dL (1.3-3.2); Glucose 248 mg/dl (74-100); Lipase 34 U/L (23-300); Potassium 4.3 mmoL/L (3.5-5.1); Sodium 135 mmol/L (136-145); Total Protein,Serum 7.3 g/dl (6.3-8.2)
--- NOTE | 2023-03-24 19:47 | PC.NURSE ---
Rounded on pt. Pt able to provide urine sample at this time. Collected and sent to lab.
--- NOTE | 2023-03-24 19:49 | PC.NURSE ---
Pt provided with water
[2023-03-24 20:24] VITALS: BP 167/87; PULSE 91; RESP 16; TEMP 36.7; O2SAT 99
--- NOTE | 2023-03-24 21:02 | HMH.EDGENADL ---
Discharge Plan Disposition Patient Disposition: Home, Self-Care Condition: Good Prescriptions Prescriptions: New polyethylene glycol 3350 [Miralax] 17 gram/dose powder 17 g PO BID Qty: 238 0RF docusate sodium [Colace] 100 mg capsule 100 mg PO BID Qty: 60 0RF No Action gabapentin 300 mg capsule 300 mg PO HS insulin aspart U-100 100 unit/mL (3 mL) insulin pen 60 unit SUB-Q QPM 30 Days Qty: 18 Label Comments: insulin glargine 100 unit/mL (3 mL) insulin pen 50 unit SUB-Q DAILY 30 Days Qty: 15 Label Comments: atorvastatin 10 mg tablet 10 mg PO DAILY Ocuvite Adult 50 Plus 250-5-1 mg capsule 1 cap PO DAILY coenzyme Q10 [Co Q-10] 100 mg capsule 100 mg PO DAILY oxybutynin chloride 15 mg tablet extended release 24hr 15 mg PO DAILY metoprolol tartrate 25 mg tablet 12.5 mg PO DAILY cefdinir 300 mg capsule 300 mg PO BID Qty: 20 0RF Referrals Follow up/Referrals: Rhoda Hawk APRN [Primary Care Provider] - See instructions Clinical Impressions Clinical Impression: Acute constipation Discharge ED Provider: Gurmeet Duong General Adult HPI General Chief complaint: PAIN Stated complaint: lower abd pain Time Seen by Provider: 03/24/23 17:44 Mode of Arrival: Ambulatory Source of Information: Patient Limitations: No Limitations Description of Symptoms (Recalled from ER Triage Doc. by RN): 77 M comes in with c/o constipation and rectal pain. pt reports that he gave himself an enema today and since then has felt pain. no urinary symptoms, no bleeding from rectum. History of Present Illness HPI narrative: 77-year-old gentleman presents with constipation. States he has been constipated since January. Did have a small bowel movement today. Denies any nausea, vomiting, fevers, chills, dysuria, hematuria, chest pain, shortness of breath, testicle pain. Related Data Home Medications Medication Instructions Recorded Confirmed atorvastatin 10 mg tablet 10 mg PO DAILY High cholesterol 02/28/19 03/21/23 coenzyme Q10 100 mg capsule (Co 100 mg PO DAILY Supplement 02/28/19 03/21/23 Q-10) insulin aspart U-100 100 unit/mL 60 unit SUB-Q QPM Diabetes 30 days 02/28/19 03/21/23 (3 mL) subcutaneous pen #18 mL insulin glargine 100 unit/mL (3 50 unit SUB-Q DAILY Diabetes 30 02/28/19 03/21/23 mL) subcutaneous pen days #15 mL vit C,E,zinc,copper-nzwaj1u 250 1 cap PO DAILY Supplement 02/28/19 03/21/23 mg-lutein 5 mg-zeaxanthin 1 mg capsule (Ocuvite Adult 50 Plus) oxybutynin chloride 15 mg 15 mg PO DAILY . 12/10/19 03/21/23 tablet,extended release 24 hr metoprolol tartrate 25 mg tablet 12.5 mg PO DAILY . 11/17/20 03/21/23 gabapentin 300 mg capsule 300 mg PO HS Pain 12/20/22 03/21/23 Previous Rx's Medication Instructions Recorded cefdinir 300 mg capsule 300 mg PO BID #20 caps 02/14/23 docusate sodium 100 mg capsule 100 mg PO BID #60 caps 03/24/23 (Colace) polyethylene glycol 3350 17 17 g PO BID #238 grams 03/24/23 gram/dose oral powder (Miralax) Allergies Allergy/AdvReac Type Severity Reaction Status Date / Time Sulfa (Sulfonamide AdvReac Mild Abdominal Verified 03/24/23 17:54 Antibiotics) Pain PFSH PFS Disclaimer: The information contained in this section may have been updated after the patient was seen, as this information can be updated by other users. Medical History Abnormal EKG Arthritis Cancer HLD (hyperlipidemia) HTN (hypertension) HTN (hypertension), benign MRSA (methicillin resistant Staphylococcus aureus) Renal disease Renal insufficiency Right bundle branch block (RBBB) Seizures T2DM (type 2 diabetes mellitus) Family History Other Heart attack Social History Smoking Status: Former smoker alcohol intake: never substance use type: shima
== END 2023-03-24 20:26 | disposition home or self-care (01) ==
PROVIDERS: Emergency Provider Emergency Medicine; PCP Nurse Practitioner Family
DX: K59.00 Constipation, unspecified (principal); Z87.891 Personal history of nicotine dependence
CPT/HCPCS: 74177; 80053; 83605; 83690; 85025; 96374; 96375; 99285; J2405; Q9967

== ENCOUNTER 2024-03-05 09:17 | Outpatient (CLI) | payer MEDICARE, SELFPAY ==
[2024-03-05 09:24] LABS: Microscopic, Urine URINE MICROSCOPIC (MICROSCOPIC)
[2024-03-05 09:41] LABS: Appearance,Urine CLEAR (Clear); Bilirubin,Urine Negative (Negative); Blood, Urine Negative (Negative); Color,Urine YELLOW (Yellow); Glucose,Urine (UA) Negative (Negative); Ketones,Urine Negative (Negative); Leukocyte Esterase,Urine Negative (Negative); Nitrate,Urine Negative (Negative); Protein,Urine Negative (Negative); Urobilinogen,Urine 0.2 EU/dl (0.2)
[2024-03-05 09:47] LABS: Basophils # 0.1 K/mm3 (0-0.2); Basophils % 1.2 % (0.1-2.0); Eosinophils # 0.4 K/mm3 (0.0-0.4); Eosinophils % 7.3 % (0.1-12.0); Hematocrit 37.6 % (42.0-52.0); Hemoglobin 12.7 g/dL (14.1-18.0); Lymphocytes # 1.6 K/mm3 (0.7-4.5); Lymphocytes % 28.7 % (10-50); Mean Corpuscular HGB Conc 33.8 g/dL (31.8-35.4); Mean Corpuscular Hemoglobin 34.1 pg (27.0-31.2); Mean Corpuscular Volume 100.8 fl (80-94); Mean Platelet Volume 8.3 fl (7.4-10.4); Monocytes # 0.3 K/mm3 (0.1-1.0); Monocytes % 5.9 % (1.7-9.3); Neutrophils # 3.2 K/mm3 (1.8-7.8); Neutrophils % 56.8 % (37.0-80.0); Platelet Count 228 K/mm3 (142-424); Red Blood Count 3.73 M/mm3 (4.60-6.20); Red Cell Distribution Width 13.3 % (11.5-17.5); White Blood Count 5.6 K/mm3 (4.8-10.8)
[2024-03-05 09:55] LABS: Creatinine,Urine Random 50 mg/dL (Not Estab.)
[2024-03-05 10:25] LABS: Bacteria,Urine Trace /lpf; RBC,Urine Occasional #/hpf (0-3); WBC,Urine Occasional #/hpf (0-3)
[2024-03-05 10:34] LABS: Chloride 105 mmol/L (98-107); Sodium 141 mmol/L (136-145)
[2024-03-05 10:35] LABS: Albumin Level 3.9 g/dl (3.5-5.0); Potassium 4.4 mmoL/L (3.5-5.1)
[2024-03-05 10:37] LABS: Anion Gap 12.4 mEq/L (5-15); Blood Urea Nitrogen 30 mg/dl (9-20); Carbon Dioxide 28 mmol/L (22.0-30.0); Estimated Glomerular Filt Rate 37 ml/min (>60); GFR (African American) 44 ML/MIN (>60)
[2024-03-05 10:38] LABS: Calcium 10.1 mg/dl (8.4-10.2); Glucose 82 mg/dl (74-100); Phosphorous 3.4 mg/dl (2.5-4.5)
[2024-03-05 10:55] LABS: 25-OH Vitamin D, Total 82.3 ng/mL (30-100)
== END 2024-03-05 23:59 | disposition home or self-care (01) ==
LOC: LAB 09:18
PROVIDERS: PCP Nurse Practitioner; Visit Provider Internal Medicine Nephrology
DX: N18.9 Chronic kidney disease, unspecified (principal); M89.9 Disorder of bone, unspecified; E55.9 Vitamin D deficiency, unspecified; Z79.899 Other long term (current) drug therapy
CPT/HCPCS: 36415; 80069; 81001; 82306; 82570; 84156; 85025

== ENCOUNTER 2024-12-07 09:18 | Emergency (ER) | payer MEDICARE, SELFPAY ==
[2024-12-07 09:36] VITALS: BP 136/70; PULSE 96; RESP 16; TEMP 36.4; O2SAT 100; BMI 22.4
--- NOTE | 2024-12-07 10:22 | ED_ITS ---
Discharge Plan Disposition Patient Disposition: Home, Self-Care Condition: Good Prescriptions Prescriptions: No Action lisinopril 5 mg tablet 5 mg PO DAILY insulin aspart U-100 100 unit/mL (3 mL) insulin pen 60 unit SUB-Q QPM 30 Days Qty: 18 Patient Comments: insulin glargine 100 unit/mL (3 mL) insulin pen 50 unit SUB-Q DAILY 30 Days Qty: 15 Patient Comments: atorvastatin 10 mg tablet 10 mg PO DAILY Ocuvite Adult 50 Plus 250-5-1 mg capsule 1 cap PO DAILY oxybutynin chloride 15 mg tablet extended release 24hr 15 mg PO DAILY Referrals Follow up/Referrals: Pete Bateman MD [Primary Care Provider] - See instructions Activity Restrictions/Add. Instructions Additional Instructions/Restrictions: Keep area clean and dry. Apply non-adherent dressing to site and lightly cover with Diego wrap. Call acquisition professional in the am to see if you can move appointment. Clinical Impressions Clinical Impression: Traumatic onycholysis Instructions Patient Instructions: Foot Care: Toenails, DI for Nail Avulsion Injury Print Language Print Language: [place] Zealander Discharge ED Provider: Henna Mata [facility] General Stated complaint: toenail torn off left foot Mode of Arrival: Ambulatory Source of Information: Patient Time Seen by Provider: 12/07/24 10:21 Description of Symptoms (Recalled from Triage Doc. by RN): TOENAIL CAUGHT ON PANTS AND RIPPED OFF HEENT Symptoms (Recalled from RN notes): No Resp Symptoms (Recalled from RN notes): No Skin Symptoms (Recalled from RN notes): No MS Symptoms (Recalled from RN notes): No Functional Status (Recalled from RN notes): WNL History of Present Illness Provider Complaint: Pt reports that he has neuropathy on his feet and while putting on his pants this morning he caught his toenail on his pants and pulled it almost off. He relates that he has an appointment on Sunday12/10/24 for his nails to be clipped. Related Data Home Medications ?Medication ?Instructions ?Recorded ?Confirmed atorvastatin 10 mg tablet 10 mg PO DAILY High cholesterol 02/28/19 09/10/24 insulin aspart U-100 100 unit/mL 60 unit SUB-Q QPM Diabetes 30 days 02/28/19 12/07/24 (3 mL) subcutaneous pen #18 mL insulin glargine 100 unit/mL (3 50 unit SUB-Q DAILY Diabetes 30 02/28/19 12/07/24 mL) subcutaneous pen days #15 mL vit C,E,zinc,copper-lwezz4m 250 1 cap PO DAILY Supplement 02/28/19 09/10/24 mg-lutein 5 mg-zeaxanthin 1 mg capsule (Ocuvite Adult 50 Plus) oxybutynin chloride 15 mg 15 mg PO DAILY . 12/10/19 09/10/24 tablet,extended release 24 hr lisinopril 5 mg tablet 5 mg PO DAILY 09/10/24 09/10/24 Allergies Allergy/AdvReac Type Severity Reaction Status Date / Time Sulfa (Sulfonamide AdvReac Mild Abdominal Verified 09/10/24 09:51 Antibiotics) Pain Worker's Comp Is this a Worker's Comp case?: No [facility] Disclaimer: The information contained in this section may have been updated after the patient was seen, as this information can be updated by other users. Medical History Arthritis Seizures Renal insufficiency Renal disease MRSA (methicillin resistant Staphylococcus aureus) HTN (hypertension), benign Cancer T2DM (type 2 diabetes mellitus) Right bundle branch block (RBBB) HLD (hyperlipidemia) Abnormal EKG HTN (hypertension) Family History Other Heart attack Social History Smoking Status: Former smoker alcohol intake: never substance use type: denies use current occupational status: retired Travel in the last 8 weeks: None household members: spouse housing: house caffeine: No Have you lived/traveled outside US in past 30 days?: No Contact w/someone who lives/traveled outside US past 30 days?: No Exposure to someone with infectious disease in past 14 days?: No Do you have a fever (greater than 100.4 F or 38 C)?: No Have you tested positive for COVID-19: No Exposed to someone with COVID-19 in past 14 days?: No Do you have a sore throat?: No Do you have a cough?: No Do you have any weakness?: No Do you have any diarrhea?: No Are you experiencing any unusual bleeding?: No Do you have any muscle aches/pain?: No Do you have any abdominal pain?: No Are you experiencing loss of taste or smell?: No ROS Obtained: Yes All systems reviewed & no additional complaints except as documented Constitutional Constitutional: Reports system reviewed and no additional complaints, except as documented Eyes Eyes: Reports system reviewed and no additional complaints, except as documented ENT Ears, Nose, Mouth, and Throat: Reports system reviewed and no additional complaints, except as documented Cardiovascular Cardiovascular: Reports system reviewed and no additional complaints, except as documented Respiratory Respiratory: Reports system reviewed and no additional complaints, except as documented Gastrointestinal Gastrointestingal: Reports system reviewed and no additional complaints, except as documented Genitourinary Male Genitourinary: Reports system reviewed and no additional complaints, except as documented Musculoskeletal Musculoskeletal: Reports system reviewed and no additional complaints, except as documented Integumentary/Breasts Skin/Breast: Reports system reviewed and no additional complaints, except as documented, Reports nail changes and Reports other Comments: third nail injury Neurologic Neurologic: Reports system reviewed and no additional complaints, except as documented Endocrine Endocrine: Reports system reviewed and no additional complaints, except as documented Hematologic/Lymphatic Henatologic/Lymphatic: Reports system reviewed and no additional complaints, except as documented Allergic/Immunologic Allergic/Immunologic: Reports system reviewed and no additional complaints, except as documented Physical Exam General General appearance: alert and in no apparent distress Head Head exam: atraumatic and normocephalic Eye Eye exam: Present normal appearance ENT ENT exam: Present normal exam and normal oropharynx Neck Neck exam: Present normal inspection Chest Chest inspection: Present normal inspection and symmetric chest wall rise Respiratory Respiratory exam: Present normal lung sounds bilaterally Cardiovascular Cardiovascular exam: Present regular rate and normal rhythm Abdominal Exam Abdominal exam: Present soft Extremities Exam Extremities exam: Present tenderness and other Expanded Lower Extremity Exam Left: Hip/Pelvis exam: Present normal inspection Upper leg exam: Present normal inspection Knee exam: Present normal inspection Lower leg exam: Present normal inspection Ankle exam: Present normal inspection Foot/toe exam: Present tenderness and nail avulsion Top foot image: 2 1. nail coming off bed with bleeding noted. Neurovascular/Tendon exam: Present normal capillary refill Gait: observed and normal Back Exam Back exam: Present normal inspection Neurological Exam Neurological exam: Present alert and oriented X3 Psychiatric Psychiatric exam: Present normal affect and normal mood Skin Skin exam: Present warm, dry and intact Lymphatic Lymphatic Findings: no adenopathy Medical Decision Making Medical Records Screening: Per USPSTF and CDC recommendations, given the prevalence of disease in our region, it is our hospital?s policy to screen for HIV and viral Hepatitis for all patients aged 18 and over and those with ongoing risk factors. Iain Inquiry Pt receiving controlled substance: No Iain was queried for this patient: No Vital Signs: 12/07/24 09:36 Temperature 97.6 F Temperature Source Oral Pulse Rate [Left Radial] 96 H Respiratory Rate 16 Blood Pressure [Left Arm] 136/70 Blood Pressure Mean [Left Arm] 92 02 Sat by Pulse Oximetry 100
[2024-12-07 10:48] VITALS: BP 136/70; PULSE 96; RESP 16; TEMP 36.4
== END 2024-12-07 10:49 | disposition home or self-care (01) ==
PROVIDERS: Emergency Provider Nurse Practitioner Family; PCP Family Medicine
DX: L60.1 Onycholysis (principal)
CPT/HCPCS: 99212; G0381

== ENCOUNTER 2025-01-23 10:53 | Outpatient (CLI) | payer MEDICARE, SELFPAY ==
--- NOTE | 2025-01-23 10:56 | CA_ITS ---
FINAL REPORT TECHNIQUE: Real-time imaging was performed of the extracranial carotid arteries in transverse and longitudinal planes with color duplex evaluation of blood flow velocity. Spectral analysis was performed. The cervicovertebral arteries were also examined. Stenosis evaluation based on elevated velocity criteria. CLINICAL HISTORY: DIZZINESS,,EX SMOKER FINDINGS: FINDINGS: RIGHT CAROTID: CCA PSV: 95 cm/sec ICA PSV: 94 cm/sec ECA PSV: 154 cm/sec ICA/CCA systolic flow velocity ratio: 0.1 Mild to moderate atherosclerotic plaque is noted. Narrowing is classified in the less than 50% category. LEFT CAROTID: CCA PSV: 103 cm/sec ICA PSV: 125 cm/sec ECA PSV: 216 cm/sec ICA/CCA systolic flow velocity ratio: 1.2 Mild to moderate atherosclerotic plaque is noted. Narrowing is classified in the less than 50% category. VERTEBRALS: Vertebral arteries are patent with antegrade flow and expected spectral waveforms. IMPRESSION: No hemodynamically significant carotid artery stenosis. Patent vertebral arteries. Reviewed, Interpreted and Dictated by Rupesh Su MD Transcribed by Floresita Carmona Authenticated and [facility]
== END 2025-01-23 23:59 | disposition home or self-care (01) ==
LOC: RT 10:54
PROVIDERS: PCP Family Medicine; Visit Provider Physician Assistant
DX: R42 Dizziness and giddiness (principal)
CPT/HCPCS: 93880

== ENCOUNTER 2025-02-16 10:38 | Observation (INO) | payer MEDICARE, SELFPAY ==
[2025-02-16] VITALS (20 sets, daily range): BP systolic 124–200; BP diastolic 63–103; PULSE 54–80; RESP 16–20; TEMP 36.4–36.6; O2SAT 97–100; BMI 21.5; BMI 22.4
--- NOTE | 2025-02-16 07:04 | IR_ITS ---
APPROVED REPORT Patient Location: Outpatient PROCEDURES Left heart catheterization Left ventriculogram Selective coronary angiogram Left internal mammary angiography Selective engagement of saphenous vein graft to the circumflex artery Selective engagement of saphenous vein graft to the ramus intermedius Selective engagement of the saphenous vein graft to the right coronary Drug-eluting stent deployment to the saphenous vein graft supplying the circumflex artery Catheter placed in left subclavian artery Left subclavian artery selective angiogram Catheter placement in the right subclavian artery Right subclavian artery selective angiogram Bilateral selective renal angiography Bare-metal stent deployment to the left renal artery INDICATION Coronary artery disease, History of coronary bypass surgery, 30 mmHg blood pressure disparity between the arms, Angina pectoris, Chronic renal failure creatinine 1.6, Hypertension precath blood pressure greater than 200 mmHg systolic, Renal artery stenosis, Renovascular hypertension, Suspect subclavian stenosis Informed consent was obtained prior to the procedure. COMPLICATIONS NONE Estimated Blood Loss: LESS THAN 10 ML TECHNIQUE One percent lidocaine used to anesthetize the right groin. The right femoral artery was accessed via the Seldinger technique and a 5 [place] sheath was placed in the right femoral artery. A JL 4, JR4 catheter were used to perform left heart catheterization, left ventriculogram selective coronary angiography as well as selective engagement of the 3 vein grafts and the left internal mammary artery. The JR4 catheter was placed in the subclavian artery where selective angiography was performed looking for subclavian stenosis given 30 mm blood pressure disparity between the arms. The JR4 catheter was used to perform bilateral selective renal angiography due to blood pressure in excess of 200 mmHg, creatinine 1.6, Stephanie vascular disease, and suspected renal artery stenosis with renovascular hypertension. At the end the diagnostic angiogram the 5 [place] sheath was exchanged for a 6 [place] sheath and therapeutic heparin was administered. 3 DRC was placed into the saphenous vein graft to the circumflex artery followed by a Choice PT extra-support wire. A 4 mm x 12 mm [place] stent was deployed at 16 kade in the ostial proximal segment of saphenous vein graft reducing the stenosis to 0%. Following this the short 6 [place] BARRON catheter was used to intubate the left renal artery and a Choice PT extra-support wire was placed distally. A 6 mm x 18 mm drug-eluting stent was deployed at 12 kade in the ostial proximal segment and the balloon was pulled back a half length and then deployed at 14 kade to post dilate and for the ostium. After achieving excellent angiographic results from the saphenous vein graft and the renal artery the apparatus was removed the groin is reprepped closure change sheath was removed and hemostasis was achieved using Perclose device patient is transferred to the postop putting in stable condition ANGIOGRAPHIC RESULTS The left main artery Has a distal 80% stenosis The left anterior descending artery Proximally occluded The circumflex artery Is proximally occluded. There is a large bifurcating ramus intermedius which has competitive flow from a vein graft The right coronary artery Proximally occluded The HERNANDEZ ventriculogram reveals Preserved at 55% The left ventricular end-diastolic pressure 10 mmHg BARRON to LAD widely patent Saphenous vein graft to circumflex artery has an ostial 80% stenosis Saphenous vein graft to ramus intermedius is widely patent Saphenous vein graft to right coronary artery is widely patent and gives rise to a large posterior descending artery Bilateral subclavian arteries are widely patent Right renal artery has a normal ostial segment with an eccentric proximal 20% stenosis Left renal artery is singular and has an ostial 70% stenosis with a 25 to 30 mm Caceres stenotic gradient IMPRESSION Coronary disease as described above Successful stenting of the saphenous vein graft supplying the obtuse marginal artery severe disease reduced to 0% with 1 drug-eluting stent Preserved ejection fraction Normal LVEDP Normal bilateral subclavian arteries Severe left renal artery stenosis with successful stenting reducing lesion to 0% with 1 bare-metal stent Chronic renal insufficiency creatinine 1.6 PLAN 1. Dual antiplatelet therapy 2. Patient should be admitted to the hospital due to the chronic renal failure and severe hypertension experienced prior to cardiac catheterization. Patient received copious contrast in the setting of his renal insufficiency in order to revascularize the saphenous vein graft and the kidney 3. IV fluids should be administered to reduce the risk of contrast nephropathy. LVEDP is normal so he should be able to tolerate at least 1 L of saline 4. Monitor for hypertension following renal artery stenosis/stenting 5. Telemetry monitoring 6. Recheck labs in the morning prior to discharge 7. LDL less than 55 to be achieved with high intensity statin 8. Avoidance of tobacco products 9. Cardiac rehabilitation Electronically signed by : Issac Chu MD 02/16/2025 10:39:37
[2025-02-16 08:23] LABS: Chloride 102 mmol/L (98-107)
[2025-02-16 08:24] LABS: Potassium 4.2 mmoL/L (3.5-5.1); Sodium 140 mmol/L (136-145)
[2025-02-16 08:26] LABS: Blood Urea Nitrogen 24 mg/dl (9-20); Creatinine Clearance Estimated 34 mL/min (50-200); Estimated Glomerular Filt Rate 42 ml/min (>60); GFR (African American) 51 ML/MIN (>60)
[2025-02-16 08:27] LABS: Anion Gap 12.2 mEq/L (5-15); Basophils % 0.7 % (0.1-2.0); Calcium 9.6 mg/dl (8.4-10.2); Carbon Dioxide 30 mmol/L (22.0-30.0); Eosinophils # 0.6 K/mm3 (0.0-0.4); Eosinophils % 9.5 % (0.1-12.0); Glucose 126 mg/dl (74-100); Hematocrit 36.1 % (42.0-52.0); Hemoglobin 12.2 g/dL (14.1-18.0); Lymphocytes # 1.7 K/mm3 (0.7-4.5); Lymphocytes % 29.6 % (10-50); Mean Corpuscular HGB Conc 33.8 g/dL (31.8-35.4); Mean Corpuscular Hemoglobin 33.6 pg (27.0-31.2); Mean Corpuscular Volume 99.4 fl (80-94); Mean Platelet Volume 9.2 fl (7.4-10.4); Monocytes # 0.6 K/mm3 (0.1-1.0); Neutrophils # 2.9 K/mm3 (1.8-7.8); Neutrophils % 49.9 % (37.0-80.0); Platelet Count 201 K/mm3 (142-424); Red Blood Count 3.63 M/mm3 (4.60-6.20); Red Cell Distribution Width 11.9 % (11.5-17.5); White Blood Count 5.8 K/mm3 (4.8-10.8)
[2025-02-16] MEDS: diphenhydrAMINE 50MG/ML VIAL 50 MG IV (09:35)
[2025-02-16] MEDS: HEPARIN 1,000 UNITS/ML 10ML VIAL (CATH LAB) 10000 UNIT IV (09:36)
[2025-02-16] MEDS: MIDAZOLAM HCL 1MG/ML 5ML VIAL 1 MG IV (09:36)
[2025-02-16] MEDS: LIDOCAINE 1% 10ML MDV 20 ML IJ (09:36)
[2025-02-16] MEDS: HEPARIN 1,000 UNITS/500ML NS (CATH LAB) 3000 UNIT IV (09:36)
[2025-02-16] MEDS: FENTANYL 100MCG/2ML VIAL 50 MCG IV (09:37)
[2025-02-16] MEDS: 0.9 % SODIUM CHLORIDE 500 ML 25 ML IV (09:37)
--- NOTE | 2025-02-16 09:58 | SUR.PHASEII ---
Notified clinic pharmacy of med to beds
[2025-02-16] MEDS: CLOPIDOGREL 300MG TABLET 600 MG PO (10:02)
--- NOTE | 2025-02-16 10:33 | HMH.PHAINT1 ---
Pharmacy Intervention Comments: MEDICATION RECONCILIATION COMPLETED ON PATIENT USING EXTERNAL FILL HISTORY FROM PHARMACY AND LIST FROM CARDIOLOGY OFFICE. -JOHAN BLOUNT, MAREKD
--- NOTE | 2025-02-16 10:43 | EXP.HP ---
History of Present Illness *Admission Date: 02/16/25 *Reason for visit:: Status post cath, stent and renal artery, malignant hypertension *History of present illness: Mr. Sultana is an 79-year-old with past history of CAD status post CABG, diabetes, CKD and hypertension. He presented for elective heart cath with bilateral subclavian artery and bilateral renal angiograms today as an outpatient. His procedure was tolerated well. He was found to have stenosis in his saphenous graft to the obtuse marginal and received 1 stent to address this obstruction. Also found to have severe left renal artery stenosis with successful stenting. Bilateral subclavian arteries were normal. Because of his elevated blood pressure, renal artery stent, and CKD, cardiology consulted medicine for admission and management overnight to monitor for variations in blood pressure and reevaluate kidney function in the morning. Patient stable on room air on arrival to the floor. Laying flat due to femoral approach. Denies any chest pain or shortness of breath. No nausea or vomiting. Alert and oriented and well-appearing on exam [facility] Disclaimer: The information contained in this section may have been updated after the patient was seen, as this information can be updated by other users. Medical History Arthritis Seizures Renal insufficiency Renal disease MRSA (methicillin resistant Staphylococcus aureus) HTN (hypertension), benign Cancer T2DM (type 2 diabetes mellitus) Right bundle branch block (RBBB) HLD (hyperlipidemia) Abnormal EKG HTN (hypertension) Family History Other Heart attack Social History Smoking Status: Former smoker alcohol intake: never substance use type: denies use current occupational status: retired Travel in the last 8 weeks: None household members: spouse housing: house caffeine: No Have you lived/traveled outside US in past 30 days?: No Contact w/someone who lives/traveled outside US past 30 days?: No Exposure to someone with infectious disease in past 14 days?: No Do you have a fever (greater than 100.4 F or 38 C)?: No Have you tested positive for COVID-19: No Exposed to someone with COVID-19 in past 14 days?: No Do you have a sore throat?: No Do you have a cough?: No Do you have any weakness?: No Are you experiencing any nausea/vomitting?: No Do you have any diarrhea?: No Are you experiencing any unusual bleeding?: No Do you have any muscle aches/pain?: No Do you have any abdominal pain?: No Are you experiencing loss of taste or smell?: No Other Medical History Have you received the Flu Vaccine for this season: No Have you received the Pneumonia Vaccine: Yes Review of Systems Review of Systems Review of systems (narrative): 14 point review of systems performed, pertinent positives and negatives as per HPI Meds Home Medications and Allergies Home Medications ?Medication ?Instructions ?Recorded ?Confirmed ?Type atorvastatin 10 mg tablet 10 mg PO DAILY 02/28/19 02/16/25 History insulin aspart U-100 100 unit/mL 60 unit SQ HS 30 days #18 mL 02/28/19 02/16/25 History (3 mL) subcutaneous pen insulin glargine 100 unit/mL (3 50 unit SQ DAILY 30 days #15 mL 02/28/19 02/16/25 History mL) subcutaneous pen oxybutynin chloride 15 mg 15 mg PO DAILY 12/10/19 02/16/25 History tablet,extended release 24 hr multivitamin (Daily Multi-Vitamin 1 tab PO DAILY 12/10/24 02/16/25 History tablet) lisinopril 10 mg tablet 10 mg PO DAILY #30 tabs 01/14/25 02/16/25 Rx metoprolol succinate 25 mg 25 mg PO DAILY #30 tabs 01/14/25 02/16/25 Rx tablet,extended release 24 hr (Toprol XL) aspirin 81 mg chewable tablet 81 mg PO DAILY 30 days #30 tabs 02/16/25 Rx clopidogrel 75 mg tablet (Plavix) 75 mg PO DAILY 30 days #30 tabs 02/16/25 Rx New Prescriptions to Start Prescriptions: aspirin Issac Chu clopidogrel [Plavix] Issac Chu Allergies Allergy/AdvReac Type Severity Reaction Status Date / Time Sulfa (Sulfonamide AdvReac Mild Abdominal Verified 01/14/25 08:28 Antibiotics) Pain Exam Data for Last 24 hours Vital signs and Labs for Last 24 Hours: Pulse Resp BP Pulse Ox O2 Del Method 55 L 16 148/69 H 97 Room Air 02/16/25 10:30 02/16/25 10:30 02/16/25 10:30 02/16/25 10:30 02/16/25 10:30 Laboratory Results - last 24 hr 02/16/25 08:11: WBC 5.8, RBC 3.63 L, Hgb 12.2 L, Hct 36.1 L, MCV 99.4 H, MCH 33.6 H, MCHC 33.8, RDW 11.9, Plt Count 201, MPV 9.2, Neut % (Auto) 49.9, Lymph % (Auto) 29.6, Mitchell % (Auto) 10.0 H, Eos % (Auto) 9.5, Baso % (Auto) 0.7, Neut # (Auto) 2.9, Lymph # (Auto) 1.7, Mitchell # (Auto) 0.6, Eos # (Auto) 0.6 H, Baso # (Auto) 0.0, Sodium 140, Potassium 4.2, Chloride 102, Carbon Dioxide 30, Anion Gap 12.2, BUN 24 H, Creatinine 1.60 H, Estimated Creat Clear 34, Estimated GFR 42 L, Est GFR ( Amer) 51 L, Glucose 126 H, Calcium 9.6 I & O for Last 24 hours: Intake & Output 02/13/25 02/14/25 02/15/25 02/16/25 23:59 23:59 23:59 23:59 Weight 66.224 kg Constitutional Constitutional: no acute distress, thin and cooperative *Routine HEENT Exam Head: Present normocephalic Eye: Present EOMI and PERRL ENT: Present mucous membranes moist *Routine Neck Exam Neck: Present supple; Absent lymphadenopathy *Routine Respiratory Exam Respiratory: Present CTA bilaterally; Absent rhonchi, wheezes or crackles *Routine Cardiovascular Exam Cardiovascular: Present RRR *Routine Abdominal Exam Abdominal: Present soft and normoactive bowel sounds; Absent tenderness *Routine Rectal Exam Rectal:: deferred *Routine Genitalia Exam Genitalia:: deferred *Routine Extremities Exam Extremities: Absent cyanosis, clubbing or edema *Routine Skin Exam Skin: Present warm; Absent rash *Routine Neurological Exam Neurological: Present alert, oriented X3 and moving all extremities; Absent altered mental status Assessment and Plan *Assessment and plan (1) CAD (coronary artery disease): Status: Acute Qualifiers: Associated angina: without angina Coronary Disease-Associated Artery/Lesion type: unspecified vessel or lesion type [place] vs. transplanted heart: [place] heart Qualified Code(s): I25.10 - Atherosclerotic heart disease of [place] coronary artery without angina pectoris Category: Medical Code(s): I25.10 - Atherosclerotic heart disease of [place] coronary artery without angina pectoris (2) Renal artery stenosis: Status: Acute Category: Medical Code(s): I70.1 - Atherosclerosis of renal artery (3) High blood pressure: Status: Acute Qualifiers: Hypertension type: unspecified secondary hypertension Qualified Code(s): I15.9 - Secondary hypertension, unspecified Category: Medical Code(s): I10 - Essential (primary) hypertension (4) Chronic kidney disease: Status: Acute Category: Medical Code(s): N18.9 - Chronic kidney disease, unspecified (5) HTN (hypertension): Status: Chronic Qualifiers: Hypertension type: essential hypertension Qualified Code(s): I10 - Essential (primary) hypertension Category: Medical Code(s): I10 - Essential (primary) hypertension (6) Type 2 diabetes mellitus with other specified complication: Status: Acute Qualifiers: 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 Presented for left heart cath with subclavian and renal artery angiograms. Received 1 graft stent and left renal artery stent. Tolerated procedure well. Discussed case with cardiology, request admission for management of blood pressure and reevaluation of kidney function. I agreed to admit for further management. Hemodynamically stable. Blood pressure little elevated on initial presentation, no chest pain, asymptomatic. Problems addressed as follows: coronary artery disease Renal artery stenosis - Status post left heart catheterization today-successful stenting of the saphenous vein graft supplying the obtuse marginal artery with 1 HERMES and 1 drug-eluting stent to left renal artery. - Continue DAPT therapy with aspirin and Plavix -Cardiology consulted to evaluate. -Continue Lipitor 10 mg daily -Repeat CBC, CMP, magnesium ordered for the morning Chronic kidney disease Hypertension - Baseline creatinine 1.6 -Resume home metoprolol succinate 25 mg daily and lisinopril 10 mg daily. Monitor blood pressure closely. Received fluids during procedure. Blood pressure elevated initially upon arriving to the floor, monitoring for hypotension Diabetes: On regimen of support RG resume glargine 25 units nightly along with sliding scale insulin ACHS. Resume home oxybutynin 15 mg daily Full code Diabetic diet
--- NOTE | 2025-02-16 11:26 | P.CONCA_ITS ---
History of Present Illness History of Present Illness Consult date: 02/16/25 Requesting physician: Сергей Chi Chief complaint: Post [facility] monitoring History of present illness: This is a 79-year-old male with past medical history of coronary artery disease status post CABG, diabetes mellitus, chronic kidney disease and hypertension who was admitted for observation after left heart catheterization with bilateral subclavian artery and bilateral renal angiograms performed today. Of note patient was hypertensive prior to procedure with systolic in the 200s and his baseline creatinine is 1.6. Please see cath report below. Patient will be admitted for monitoring of severe hypertension and chronic kidney disease after use of contrast during procedure. Cath report: IMPRESSION Coronary disease as described above Successful stenting of the saphenous vein graft supplying the obtuse marginal artery severe disease reduced to 0% with 1 drug-eluting stent Preserved ejection fraction Normal LVEDP Normal bilateral subclavian arteries Severe left renal artery stenosis with successful stenting reducing lesion to 0% with 1 bare-metal stent Chronic renal insufficiency creatinine 1.6 PLAN 1. Dual antiplatelet therapy 2. Patient should be admitted to the hospital due to the chronic renal failure and severe hypertension experienced prior to cardiac catheterization. Patient received copious contrast in the setting of his renal insufficiency in order to revascularize the saphenous vein graft and the kidney 3. IV fluids should be administered to reduce the risk of contrast nephropathy. LVEDP is normal so he should be able to tolerate at least 1 L of saline 4. Monitor for hypertension following renal artery stenosis/stenting 5. Telemetry monitoring 6. Recheck labs in the morning prior to discharge 7. LDL less than 55 to be achieved with high intensity statin 8. Avoidance of tobacco products 9. Cardiac rehabilitation [facility] Disclaimer: The information contained in this section may have been updated after the patient was seen, as this information can be updated by other users. Medical History Arthritis Seizures Renal insufficiency Renal disease MRSA (methicillin resistant Staphylococcus aureus) HTN (hypertension), benign Cancer T2DM (type 2 diabetes mellitus) Right bundle branch block (RBBB) HLD (hyperlipidemia) Abnormal EKG HTN (hypertension) Family History Other Heart attack Social History Smoking Status: Former smoker alcohol intake: never substance use type: denies use current occupational status: retired Travel in the last 8 weeks: None household members: spouse housing: house caffeine: No Have you lived/traveled outside US in past 30 days?: No Contact w/someone who lives/traveled outside US past 30 days?: No Exposure to someone with infectious disease in past 14 days?: No Do you have a fever (greater than 100.4 F or 38 C)?: No Have you tested positive for COVID-19: No Exposed to someone with COVID-19 in past 14 days?: No Do you have a sore throat?: No Do you have a cough?: No Do you have any weakness?: No Do you have any diarrhea?: No Are you experiencing any unusual bleeding?: No Do you have any muscle aches/pain?: No Do you have any abdominal pain?: No Are you experiencing loss of taste or smell?: No Review of Systems Review of Systems Review of systems:: pertinent systems reviewed and negative unless documented below Exam Data for Last 24 hours Vital signs and Labs for Last 24 Hours: Pulse Resp BP Pulse Ox O2 Del Method 55 L 16 148/69 H 97 Room Air 02/16/25 10:30 02/16/25 10:30 02/16/25 10:30 02/16/25 10:30 02/16/25 10:30 Laboratory Results - last 24 hr 02/16/25 08:11: WBC 5.8, RBC 3.63 L, Hgb 12.2 L, Hct 36.1 L, MCV 99.4 H, MCH 33.6 H, MCHC 33.8, RDW 11.9, Plt Count 201, MPV 9.2, Neut % (Auto) 49.9, Lymph % (Auto) 29.6, [place] % (Auto) 10.0 H, Eos % (Auto) 9.5, Baso % (Auto) 0.7, Neut # (Auto) 2.9, Lymph # (Auto) 1.7, [place] # (Auto) 0.6, Eos # (Auto) 0.6 H, Baso # (Auto) 0.0, Sodium 140, Potassium 4.2, Chloride 102, Carbon Dioxide 30, Anion Gap 12.2, BUN 24 H, Creatinine 1.60 H, Estimated Creat Clear 34, Estimated GFR 42 L, Est GFR ( Amer) 51 L, Glucose 126 H, Calcium 9.6 I & O for Last 24 hours: Intake & Output 02/13/25 02/14/25 02/15/25 02/16/25 23:59 23:59 23:59 23:59 Weight 146 lb Constitutional Constitutional: no acute distress *Routine Respiratory Exam Respiratory: Present CTA bilaterally and symmetric chest movement *Routine Cardiovascular Exam Cardiovascular: Present RRR, Normal S1 and Normal S2 *Routine Abdominal Exam Abdominal: Present soft and normoactive bowel sounds; Absent tenderness *Routine Extremities Exam Extremities: Present full ROM and normal capillary refill; Absent edema *Routine Skin Exam Skin: Present intact, dry and warm Detailed Neck Exam: Thyroids Thyroid: Absent bruit Meds Home Medications and Allergies Home Medications ?Medication ?Instructions ?Recorded ?Confirmed ?Type atorvastatin 10 mg tablet 10 mg PO DAILY 02/28/19 02/16/25 History insulin aspart U-100 100 unit/mL 60 unit SQ HS 30 days #18 mL 02/28/19 02/16/25 History (3 mL) subcutaneous pen insulin glargine 100 unit/mL (3 50 unit SQ DAILY 30 days #15 mL 02/28/19 02/16/25 History mL) subcutaneous pen oxybutynin chloride 15 mg 15 mg PO DAILY 12/10/19 02/16/25 History tablet,extended release 24 hr multivitamin (Daily Multi-Vitamin 1 tab PO DAILY 12/10/24 02/16/25 History tablet) lisinopril 10 mg tablet 10 mg PO DAILY #30 tabs 01/14/25 02/16/25 Rx metoprolol succinate 25 mg 25 mg PO DAILY #30 tabs 01/14/25 02/16/25 Rx tablet,extended release 24 hr (Toprol XL) aspirin 81 mg chewable tablet 81 mg PO DAILY 30 days #30 tabs 02/16/25 Rx clopidogrel 75 mg tablet (Plavix) 75 mg PO DAILY 30 days #30 tabs 02/16/25 Rx New Prescriptions to Start Prescriptions: aspirin Issac Chu clopidogrel [Plavix] Issac Chu Allergies Allergy/AdvReac Type Severity Reaction Status Date / Time Sulfa (Sulfonamide AdvReac Mild Abdominal Verified 01/14/25 08:28 Antibiotics) Pain Assessment and Plan *Assessment and plan (1) CAD (coronary artery disease): Status: Acute Qualifiers: Associated angina: without angina Coronary Disease-Associated Artery/Lesion type: unspecified vessel or lesion type [place] vs. transplanted heart: [place] heart Qualified Code(s): I25.10 - Atherosclerotic heart disease of [place] coronary artery without angina pectoris Category: Medical Code(s): I25.10 - Atherosclerotic heart disease of [place] coronary artery without angina pectoris (2) Renal artery stenosis: Status: Acute Category: Medical Code(s): I70.1 - Atherosclerosis of renal artery (3) High blood pressure: Status: Acute Qualifiers: Hypertension type: unspecified secondary hypertension Qualified Code(s): I15.9 - Secondary hypertension, unspecified Category: Medical Code(s): I10 - Essential (primary) hypertension (4) Chronic kidney disease: Status: Acute Category: Medical Code(s): N18.9 - Chronic kidney disease, unspecified Plan Coronary artery disease Status post left heart catheterization today-successful stenting of the saphenous vein graft supplying the obtuse marginal artery with 1 HERMES Continue DAPT therapy with aspirin and Plavix Continue statin Renal artery stenosis Chronic kidney disease Baseline creatinine 1.6 Severe left renal artery stenosis with successful stenting reduced lesion with 1 bare-metal stent Give at least 1 L bolus fluid status postcontrast Repeat labs prior to discharge tomorrow morning Hypertension Monitor CV summary 02/16/2025: Monitor blood pressure throughout the evening and repeat labs in the morning prior to discharge. Patient needs to receive at least 1 L fluid bolus status post contrast.
[2025-02-16 11:46] LABS: Hemoglobin A1C 8.4 % (4.0-6.0)
[2025-02-16] MEDS: IOPAMIDOL-370 (76%);100ML BOTTLE 95 ML IV (13:46)
[2025-02-16 14:22] LABS: CATHL Activated Clotting Time 324 SEC (74-125)
--- NOTE | 2025-02-16 20:46 | PC.NURSE ---
At this time, the patient's glucose reading via Dexcom (approved during the previous shift to use) is 215. The patient did not want to take Lispro (short-acting) insulin at this time, and wanted to see if he can take Lantus (long-acting) insulin at bedtime, for he takes it this way at home. The patient stated that according to his glucose reading now, he would take a 24 unit dose of Lantus to cover him. Alvaro QUESADA was paged to notify him of the patient's request and for new orders; he was also notified that the patient refused to take Lispro insulin at this time. When I walked into the patient's room, the patient had home medications on his table; these home medications were not locked away during the previous shift. The patient stated that he had already taken both bedtime medications (atorvastatin and oxybutynin) that were ordered for tonight. Medications put away in room. Medications provided by facility from patient's room bin were not given per MAR due to them already being taken by the patient. Education was provided about this.
--- NOTE | 2025-02-16 20:55 | EXP.EVENT.NO ---
Reported to me by nurse on the floor. Patient normally takes Lantus 24 units each night., He did not want to take the sliding scale at this time will change his for having insulin in the a.m. DC that and place him on Lantus 24 units at bedtime first dose given now
[2025-02-16] MEDS: INSULIN GLARGINE 100 UNITS/ML 10ML VIAL 24 UNIT SUBCUT (21:04)
[2025-02-17] VITALS: BP 124/65; PULSE 68; PULSE 70; RESP 16; TEMP 36.4; O2SAT 99
[2025-02-17 04:00] VITALS: BP 144/64; PULSE 60; PULSE 65; RESP 16; TEMP 36.4; O2SAT 99; BMI 22.6
--- NOTE | 2025-02-17 04:50 | PC.NURSE ---
Addendum entered by Linda Dillard RN 02/17/25 06:57: Home medications were moved and locked away in the [facility] so that they could be taken by pharmacy for labeling this morning. Original Note: Patient is alert and oriented x4. He was observed to be awake, remaining up to chair, for the majority of the night. Patient ambulates in his room/to the bathroom without difficulties. His right femoral cath site was assessed; tegaderm/sterile gauze dressing remains clean, dry, and intact. The patient has not had any complaints of pain anywhere this shift; he stated that he feels much better post-heart cath. Skin temperature and color around the groin site is consistent with the surrounding areas. Pulses +2. Fluid intake encouraged. Auscultation of his heart, lungs, and bowels were within normal findings. Normal sinus rhythm on telemetry. Seizure pads were placed this shift due to patient's history of seizures. Scheduled medications were administered as appropriately per MAR (see prior note). ACHS glucose checks performed via Dexcom (approved to use during the previous shift). Vital signs stable. At this time, the patient is resting in bed without any further complaints. No new needs at this time. Call light within reach.
--- NOTE | 2025-02-17 06:01 | PC.NURSE ---
At this time, the patient's glucose reading via Dexcom is 188. The patient stated that he wanted to wait on coverage for now.
[2025-02-17 06:50] LABS: Basophils % 0.7 % (0.1-2.0); Eosinophils # 0.5 K/mm3 (0.0-0.4); Eosinophils % 7.8 % (0.1-12.0); Hematocrit 34.5 % (42.0-52.0); Hemoglobin 11.3 g/dL (14.1-18.0); Lymphocytes # 1.2 K/mm3 (0.7-4.5); Lymphocytes % 20.7 % (10-50); Mean Corpuscular HGB Conc 32.8 g/dL (31.8-35.4); Mean Corpuscular Volume 97.7 fl (80-94); Mean Platelet Volume 9.6 fl (7.4-10.4); Monocytes # 0.7 K/mm3 (0.1-1.0); Monocytes % 10.8 % (1.7-9.3); Neutrophils # 3.6 K/mm3 (1.8-7.8); Neutrophils % 59.8 % (37.0-80.0); Platelet Count 194 K/mm3 (142-424); Red Blood Count 3.53 M/mm3 (4.60-6.20); Red Cell Distribution Width 12.3 % (11.5-17.5)
[2025-02-17 07:02] LABS: Chloride 103 mmol/L (98-107); Potassium 4.9 mmoL/L (3.5-5.1); Sodium 137 mmol/L (136-145)
[2025-02-17 07:05] LABS: Anion Gap 10.9 mEq/L (5-15); Blood Urea Nitrogen 24 mg/dl (9-20); Calcium 9.1 mg/dl (8.4-10.2); Carbon Dioxide 28 mmol/L (22.0-30.0); Creatinine Clearance Estimated 36 mL/min (50-200); Estimated Glomerular Filt Rate 42 ml/min (>60); GFR (African American) 51 ML/MIN (>60); Glucose 195 mg/dl (74-100)
[2025-02-17 08:00] VITALS: BP 110/54; PULSE 68; PULSE 70; RESP 16; TEMP 36.4; O2SAT 97
[2025-02-17 08:30] VITALS: O2SAT 97
[2025-02-17] MEDS: OXYBUTYNIN 5MG TAB 5 MG PO ×2 (08:35→12:12)
[2025-02-17] MEDS: ASPIRIN EC 81MG TABLET 81 MG PO (08:35)
[2025-02-17] MEDS: LISINOPRIL 10MG TABLET 10 MG PO (08:35)
[2025-02-17] MEDS: METOPROLOL SUCCINATE XL 25MG TABLET 25 MG PO (08:35)
[2025-02-17] MEDS: CLOPIDOGREL 75MG TAB 75 MG PO (08:36)
[2025-02-17 09:28] LABS: Chol/HDL Ratio 3.9 (1-3.5); Cholesterol 141 mg/dl (140-200); HDL Cholesterol 36 mg/dl (40-60); Triglycerides 160 mg/dl (30-150); VLDL Cholesterol 32 mg/dL (0-40)
--- NOTE | 2025-02-17 10:23 | P.PN_ITS ---
Subjective Subjective Date: 02/17/25 Time: 08:00 Principal diagnosis: CAD and Renal artery stenosis Interval history: Patient doing well this morning. Denies chest pain. Blood pressure has improved. Kidney function remained stable. Exam Data for Last 24 hours Vital signs and Labs for Last 24 Hours: Temp Pulse Resp BP Pulse Ox O2 Del Method 97.6 F 68 16 110/54 L 97 Room Air 02/17/25 08:00 02/17/25 08:00 02/17/25 08:00 02/17/25 08:00 02/17/25 08:30 02/17/25 09:10 Laboratory Results - last 24 hr 02/16/25 08:11: Hemoglobin A1c 8.4 H 02/16/25 09:41: Activated Clotting Time 324 H* 02/17/25 06:18: WBC 6.0, RBC 3.53 L, Hgb 11.3 L, Hct 34.5 L, MCV 97.7 H, MCH 32.0 H, MCHC 32.8, RDW 12.3, Plt Count 194, MPV 9.6, Neut % (Auto) 59.8, Lymph % (Auto) 20.7, [place] % (Auto) 10.8 H, Eos % (Auto) 7.8, Baso % (Auto) 0.7, Neut # (Auto) 3.6, Lymph # (Auto) 1.2, [place] # (Auto) 0.7, Eos # (Auto) 0.5 H, Baso # (Auto) 0.0, Sodium 137, Potassium 4.9, Chloride 103, Carbon Dioxide 28, Anion Gap 10.9, BUN 24 H, Creatinine 1.60 H, Estimated Creat Clear 36, Estimated GFR 42 L, Est GFR ( Amer) 51 L, Glucose 195 H D, Calcium 9.1, Triglycerides 160 H, Cholesterol 141, LDL Cholesterol Direct 70.60 L, VLDL Cholesterol 32, HDL Cholesterol 36 L, Cholesterol/HDL Ratio 3.9 H I & O for Last 24 hours: Intake & Output 02/14/25 02/15/25 02/16/25 02/17/25 23:59 23:59 23:59 23:59 Intake Total 340 / 562 462 / 462 Output Total 1100 / 1100 0 / 0 Balance -760 / -538 462 / 462 Weight 152 lb 3 oz 153 lb 3 oz Constitutional Constitutional: no acute distress *Routine Respiratory Exam Respiratory: Present CTA bilaterally and symmetric chest movement *Routine Cardiovascular Exam Cardiovascular: Present RRR, Normal S1 and Normal S2 *Routine Abdominal Exam Abdominal: Present soft and normoactive bowel sounds; Absent tenderness *Routine Extremities Exam Extremities: Present full ROM and normal capillary refill; Absent edema Comments: Right groin site: Dressing is dry and intact. No obvious swelling, bruising, tenderness or erythema noted *Routine Skin Exam Skin: Present intact, dry and warm Detailed Neck Exam: Thyroids Thyroid: Absent bruit Progress Note: A&P Assessment and plan (1) CAD (coronary artery disease): Status: Acute (2) Renal artery stenosis: Status: Acute (3) High blood pressure: Status: Acute (4) Chronic kidney disease: Status: Acute (5) Type 2 diabetes mellitus with other specified complication: Status: Acute (6) History of coronary artery bypass graft: Status: Acute Assessment and Plan Assessment and Plan for All Diagnoses:: Coronary artery disease Status post left heart catheterization today-successful stenting of the saphenous vein graft supplying the obtuse marginal artery with 1 HERMES Continue DAPT therapy with aspirin and Plavix Continue statin Renal artery stenosis Chronic kidney disease Baseline creatinine 1.6 Severe left renal artery stenosis with successful stenting reduced lesion with 1 bare-metal stent Give at least 1 L bolus fluid status postcontrast Repeat labs this morning remained stable Hypertension-resolved CV summary 02/17/2025: Patient CV stable for discharge home. Please have patient follow-up in cardiology clinic in 1 week for reevaluation. Please continue DAPT therapy with aspirin/ Plavix and statin. Patient advised to continue to monitor blood pressure with twice daily blood pressure checks. He can continue his lisinopril 10 mg p.o. daily and metoprolol succinate 25 mg p.o. daily to be adjusted at office follow-up based on blood pressure readings.
[2025-02-17 12:00] VITALS: BP 126/63; PULSE 69; RESP 16; TEMP 36.3; O2SAT 100
--- NOTE | 2025-02-17 12:35 | EXP.DC.SUM ---
General Admission date:: 02/16/25 HPI HPI HPI: Mr. Sultana is an 79-year-old with past history of CAD status post CABG, diabetes, CKD and hypertension. He presented for elective heart cath with bilateral subclavian artery and bilateral renal angiograms today as an outpatient. His procedure was tolerated well. He was found to have stenosis in his saphenous graft to the obtuse marginal and received 1 stent to address this obstruction. Also found to have severe left renal artery stenosis with successful stenting. Bilateral subclavian arteries were normal. Because of his elevated blood pressure, renal artery stent, and CKD, cardiology consulted medicine for admission and management overnight to monitor for variations in blood pressure and reevaluate kidney function in the morning. Patient stable on room air on arrival to the floor. Laying flat due to femoral approach. Denies any chest pain or shortness of breath. No nausea or vomiting. Alert and oriented and well-appearing on exam Hospital Course Hospital Course Hospital Course: 79-year-old with history of diabetes, hypertension, vasculopathy, CAD status post CABG, renal artery stenosis. Presented for left heart cath with subclavian and renal artery angiograms. Received 1 graft stent and left renal artery stent. Tolerated procedure well. Discussed case with cardiology, request admission for management of blood pressure and reevaluation of kidney function. #Coronary artery disease #Renal artery stenosis - Status post left heart catheterization for 02/16/25, successful stenting of the saphenous vein graft supplying the obtuse marginal artery with 1 HERMES and 1 drug-eluting stent to left renal artery. - Continue DAPT therapy with aspirin and Plavix, metoprolol succinate 25 mg, atorvastatin 10 mg. ? Hemoglobin A1c 8.4, LDL 70. - Continue Lipitor 10 mg daily - Repeat CBC, CMP, magnesium ordered for the morning #Chronic kidney disease stage III #Hypertension - Resume home metoprolol succinate 25 mg daily and lisinopril 10 mg daily. ? Creatinine 1.6, GFR 42. Stable #Diabetes: ? Hemoglobin A1c 8.4% ? Continue home insulin regimen. ? Started Farxiga 10 mg. ? Will need further evaluation management with PCP. Resume home oxybutynin 15 mg daily Exam Data for Last 24 hours Vital signs and Labs for Last 24 Hours: Temp Pulse Resp BP Pulse Ox O2 Del Method 97.6 F 68 16 110/54 L 97 Room Air 02/17/25 08:00 02/17/25 08:00 02/17/25 08:00 02/17/25 08:00 02/17/25 08:30 02/17/25 11:10 Laboratory Results - last 24 hr 02/16/25 09:41: Activated Clotting Time 324 H* 02/17/25 06:18: WBC 6.0, RBC 3.53 L, Hgb 11.3 L, Hct 34.5 L, MCV 97.7 H, MCH 32.0 H, MCHC 32.8, RDW 12.3, Plt Count 194, MPV 9.6, Neut % (Auto) 59.8, Lymph % (Auto) 20.7, [place] % (Auto) 10.8 H, Eos % (Auto) 7.8, Baso % (Auto) 0.7, Neut # (Auto) 3.6, Lymph # (Auto) 1.2, [place] # (Auto) 0.7, Eos # (Auto) 0.5 H, Baso # (Auto) 0.0, Sodium 137, Potassium 4.9, Chloride 103, Carbon Dioxide 28, Anion Gap 10.9, BUN 24 H, Creatinine 1.60 H, Estimated Creat Clear 36, Estimated GFR 42 L, Est GFR ( Amer) 51 L, Glucose 195 H D, Calcium 9.1, Triglycerides 160 H, Cholesterol 141, LDL Cholesterol Direct 70.60 L, VLDL Cholesterol 32, HDL Cholesterol 36 L, Cholesterol/HDL Ratio 3.9 H I & O for Last 24 hours: Intake & Output 02/14/25 02/15/25 02/16/25 02/17/25 23:59 23:59 23:59 23:59 Intake Total 340 / 562 462 / 462 Output Total 1100 / 1100 0 / 0 Balance -760 / -538 462 / 462 Weight 69.031 kg 69.485 kg Constitutional Constitutional: no acute distress *Routine HEENT Exam Head: Present normocephalic Eye: Present EOMI and PERRL ENT: Present mucous membranes moist *Routine Neck Exam Neck: Present supple; Absent lymphadenopathy *Routine Respiratory Exam Respiratory: Present CTA bilaterally *Routine Cardiovascular Exam Cardiovascular: Present RRR *Routine Abdominal Exam Abdominal: Present soft and normoactive bowel sounds; Absent tenderness *Routine Extremities Exam Extremities: Absent cyanosis, clubbing or edema *Routine Skin Exam Skin: Present warm; Absent rash *Routine Neurological Exam Neurological: Present alert and oriented X3 Results Data Completed and Pending Labs on day of discharge: Labs from last 24 hours 02/17/25 02/16/25 06:18 09:41 WBC 6.0 RBC 3.53 L Hgb 11.3 L Hct 34.5 L MCV 97.7 H MCH 32.0 H MCHC 32.8 RDW 12.3 Plt Count 194 MPV 9.6 Neut % (Auto) 59.8 Lymph % (Auto) 20.7 [place] % (Auto) 10.8 H Eos % (Auto) 7.8 Baso % (Auto) 0.7 Neut # (Auto) 3.6 Lymph # (Auto) 1.2 [place] # (Auto) 0.7 Eos # (Auto) 0.5 H Baso # (Auto) 0.0 Activated Clotting Time 324 H* Sodium 137 Potassium 4.9 Chloride 103 Carbon Dioxide 28 Anion Gap 10.9 BUN 24 H Creatinine 1.60 H Estimated Creat Clear 36 Estimated GFR 42 L Est GFR ( Amer) 51 L Glucose 195 H D Calcium 9.1 Triglycerides 160 H Cholesterol 141 LDL Cholesterol Direct 70.60 L VLDL Cholesterol 32 HDL Cholesterol 36 L Cholesterol/HDL Ratio 3.9 H DS: Diagnosis Discharge Diagnosis (1) CAD (coronary artery disease): Status: Acute Code(s): I25.10 - Atherosclerotic heart disease of [place] coronary artery without angina pectoris Qualifiers: Associated angina: without angina Coronary Disease-Associated Artery/Lesion type: unspecified vessel or lesion type [place] vs. transplanted heart: [place] heart Qualified Code(s): I25.10 - Atherosclerotic heart disease of [place] coronary artery without angina pectoris (2) Renal artery stenosis: Status: Acute Code(s): I70.1 - Atherosclerosis of renal artery (3) High blood pressure: Status: Acute Code(s): I10 - Essential (primary) hypertension Qualifiers: Hypertension type: unspecified secondary hypertension Qualified Code(s): I15.9 - Secondary hypertension, unspecified (4) Chronic kidney disease: Status: Acute Code(s): N18.9 - Chronic kidney disease, unspecified (5) Type 2 diabetes mellitus with other specified complication: Status: Acute Code(s): E11.69 - Type 2 diabetes mellitus with other specified complication Qualifiers: Diabetes mellitus detention insulin use: unspecified 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 status Qualified Code(s): E11.69 - Type 2 diabetes mellitus with other specified complication (6) History of coronary artery bypass graft: Status: Acute Code(s): Z95.1 - Presence of aortocoronary bypass graft Meds Home Medications and Allergies Home Medications ?Medication ?Instructions ?Recorded ?Confirmed ?Type atorvastatin 10 mg tablet 10 mg PO DAILY 02/28/19 02/16/25 History insulin aspart U-100 100 unit/mL 60 unit SQ HS 30 days #18 mL 02/28/19 02/16/25 History (3 mL) subcutaneous pen insulin glargine 100 unit/mL (3 50 unit SQ DAILY 30 days #15 mL 02/28/19 02/16/25 History mL) subcutaneous pen oxybutynin chloride 15 mg 15 mg PO DAILY 12/10/19 02/16/25 History tablet,extended release 24 hr multivitamin (Daily Multi-Vitamin 1 tab PO DAILY 12/10/24 02/16/25 History tablet) lisinopril 10 mg tablet 10 mg PO DAILY #30 tabs 01/14/25 02/16/25 Rx metoprolol succinate 25 mg 25 mg PO DAILY #30 tabs 01/14/25 02/16/25 Rx tablet,extended release 24 hr (Toprol XL) aspirin 81 mg chewable tablet 81 mg PO DAILY 30 days #30 tabs 02/16/25 Rx clopidogrel 75 mg tablet (Plavix) 75 mg PO DAILY 30 days #30 tabs 02/16/25 Rx dapagliflozin propanediol 10 mg 10 mg PO DAILY #30 tabs 02/17/25 Rx tablet (Farxiga) New Prescriptions to Start Prescriptions: aspirin Issac Chu clopidogrel [Plavix] Issac Chu dapagliflozin propanediol [Farxiga] Tommy Schultz Allergies Allergy/AdvReac Type Severity Reaction Status Date / Time Sulfa (Sulfonamide AdvReac Mild Abdominal Verified 01/14/25 08:28 Antibiotics) Pain Discharge Plan Disposition Patient Disposition: Home, Self-Care Condition: Fair Follow up Plan Follow up with: Alondra Burrell APRN [Primary Care Provider] - Enter time for follow up Issac Chu MD [Staff Physician] - 02/23/25 11:15 am Prescriptions/Medication Reconciliation: New clopidogrel [Plavix] 75 mg Tablet 75 mg PO DAILY 30 Days Qty: 30 6RF aspirin 81 mg Tablet,Chewable 81 mg PO DAILY 30 Days Qty: 30 6RF dapagliflozin propanediol [Farxiga] 10 mg tablet 10 mg PO DAILY Qty: 30 0RF Continued insulin aspart U-100 100 unit/mL (3 mL) insulin pen 60 unit SQ HS 30 Days Qty: 18 Patient Comments: insulin glargine 100 unit/mL (3 mL) insulin pen 50 unit SQ DAILY 30 Days Qty: 15 Patient Comments: atorvastatin 10 mg tablet 10 mg PO DAILY oxybutynin chloride 15 mg tablet extended release 24hr 15 mg PO DAILY multivitamin [Daily Multi-Vitamin] Tablet 1 tab PO DAILY lisinopril 10 mg tablet 10 mg PO DAILY Qty: 30 2RF metoprolol succinate [Toprol XL] 25 mg tablet extended release 24 hr 25 mg PO DAILY Qty: 30 5RF Other Ambulatory Orders: Basic Metabolic Panel (Routine) Timeframe: 1 Week Facility: [facility] - Location: Laboratory Ordered By: Issac Chu Complete Blood Count Auto Diff (Routine) Timeframe: 1 Week Facility: [facility] - Location: Laboratory Ordered By: Issac Chu Problem Reconciliation Problems Reviewed?: Yes Patient Discharge Instructions Patient Instructions: Coronary Stenting, DI for Cardiac Catheterization, DI for Peripheral Vascular (Arterial) Disease, DI for Surgical Site Infection, DI for Moderate Sedation Print Language: Yoruba Providers Primary Care Provider: Alondra Burrell Admit Provider: Issac Chu Attending Provider: Сергей Chi
--- NOTE | 2025-02-18 11:59 | SW/DCPLANNER ---
Spoke with patient on the phone. Patient stated that he is doing well. Patient stated that he is aware of his upcoming appointments. 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 Patient has no concerns or questions at this time. Alisia Crowley
== END 2025-02-17 13:00 | disposition home or self-care (01) ==
LOC: 2ND 10:39
PROVIDERS: Student in an Organized Health Care Education/Training Program; Admitting Provider Internal Medicine; PCP Nurse Practitioner; Visit Provider Internal Medicine Adolescent Medicine
DX: I25.118 Atherosclerotic heart disease of native coronary artery with other forms of angina pectoris (principal); I77.1 Stricture of artery; I70.1 Atherosclerosis of renal artery; R06.09 Other forms of dyspnea; R42 Dizziness and giddiness; I10 Essential (primary) hypertension; E11.69 Type 2 diabetes mellitus with other specified complication; Z95.1 Presence of aortocoronary bypass graft; R94.31 Abnormal electrocardiogram [ECG] [EKG]; E78.2 Mixed hyperlipidemia; Z95.5 Presence of coronary angioplasty implant and graft; I15.9 Secondary hypertension, unspecified; N18.9 Chronic kidney disease, unspecified; Z87.891 Personal history of nicotine dependence; Z88.2 Allergy status to sulfonamides; Z79.4 Long term (current) use of insulin; E78.5 Hyperlipidemia, unspecified
CPT/HCPCS: 36225; 36415; 37236; 80048; 80061; 83036; 85025; 85347; 92937; 93459; 99152; 99153; C1725; C1760; C1769; C1874; C1876; C1887; C1894; C9604; G0378; J1200; J1644; J3010; Q9967

== ENCOUNTER 2025-02-25 09:12 | Outpatient (CLI) | payer MEDICARE, SELFPAY ==
--- NOTE | 2025-02-25 | US_ITS ---
FINAL REPORT CLINICAL HISTORY: MD, Cardiac stents, HTN, HLD, DM, neuropathy, exsmoker COMPARISON: None FINDINGS: ANKLE-BRACHIAL PRESSURE INDICES Pressure indices are as follows: RIGHT LOWER EXTREMITY: Ankle-brachial pressure index: 1.1 Comments: Normal LEFT LOWER EXTREMITY: Ankle-brachial pressure index: 1.2 Comments: Normal CONCLUSION: No evidence of significant obstructive peripheral vascular disease of the lower extremities Reviewed, Interpreted and Dictated by Jessa Alcaraz MD Transcribed by Rach Cristina Authenticated and . [facility]
[2025-02-25 09:35] LABS: Basophils # 0.1 K/mm3 (0-0.2); Basophils % 1.1 % (0.1-2.0); Eosinophils # 0.5 K/mm3 (0.0-0.4); Eosinophils % 8.8 % (0.1-12.0); Hematocrit 34.9 % (42.0-52.0); Hemoglobin 11.7 g/dL (14.1-18.0); Lymphocytes % 16.7 % (10-50); Mean Corpuscular HGB Conc 33.5 g/dL (31.8-35.4); Mean Corpuscular Hemoglobin 33.1 pg (27.0-31.2); Mean Corpuscular Volume 98.9 fl (80-94); Mean Platelet Volume 9.2 fl (7.4-10.4); Monocytes # 0.7 K/mm3 (0.1-1.0); Monocytes % 11.5 % (1.7-9.3); Neutrophils # 3.8 K/mm3 (1.8-7.8); Neutrophils % 61.7 % (37.0-80.0); Nucleated Red Blood Cells # 0 10^3/uL; Nucleated Red Blood Cells % 0 %; Platelet Count 222 K/mm3 (142-424); Red Blood Count 3.53 M/mm3 (4.60-6.20); Red Cell Distribution Width 12.5 % (11.5-17.5); Red Cell Distribution Width-SD 45.2 fL; White Blood Count 6.2 K/mm3 (4.8-10.8)
[2025-02-25 10:18] LABS: Chloride 105 mmol/L (98-107); Sodium 140 mmol/L (136-145)
[2025-02-25 10:21] LABS: Blood Urea Nitrogen 30 mg/dl (9-20); Calcium 9.3 mg/dl (8.4-10.2); Carbon Dioxide 28 mmol/L (22.0-30.0); Estimated Glomerular Filt Rate 32 ml/min (>60); GFR (African American) 39 ML/MIN (>60); Glucose 163 mg/dl (74-100)
[2025-02-25 10:47] LABS: Free T4 (Free Thyroxine) 0.84 ng/dl (0.78-2.19)
[2025-02-25 10:55] LABS: Thyroid Stimulating Hormone 9.56 uIU/mL (0.465-4.68)
[2025-03-04 14:37] LABS: Dopamine, Plasma 14.8 pg/mL (0.0-36.7); Epinephrine, Plasma 30.5 pg/mL (0.0-55.4); Norepinephrine, Plasma 621 pg/mL (115-524)
[2025-03-07 09:15] LABS: Dopamine, Ur, 24hr 86 ug/24 hr (0-510); Dopamine, Urine 39 ug/L (Undefined); Epinephrine, U, 24hr <7 ug/24 hr (0-20); Epinephrine, Urine <3 ug/L (Undefined); Norepinephrine, Ur <15 ug/L (Undefined); Norepinephrine,U,24h <33 ug/24 hr (0-135); VMA, Urine 1.1 mg/L (Undefined); VMA, Urine, 24hr 2.4 mg/24 hr (0.0-7.5)
[2025-03-08 18:09] LABS: Metanephrine, U,24hr 53 ug/24 hr (58-276); Metanephrine, Ur 24 ug/L (Undefined); Normetanephr.,U,24h 205 ug/24 hr (156-729); Normetanephrine, Ur 93 ug/L (Undefined)
== END 2025-02-25 23:59 | disposition home or self-care (01) ==
LOC: RT 09:14
PROVIDERS: Internal Medicine; Physician Assistant; PCP Nurse Practitioner; Visit Provider Nurse Practitioner
DX: I77.1 Stricture of artery (principal); R09.89 Other specified symptoms and signs involving the circulatory and respiratory systems; M79.2 Neuralgia and neuritis, unspecified; I10 Essential (primary) hypertension; E11.69 Type 2 diabetes mellitus with other specified complication; Z95.1 Presence of aortocoronary bypass graft; I25.10 Atherosclerotic heart disease of native coronary artery without angina pectoris; E78.2 Mixed hyperlipidemia; R94.31 Abnormal electrocardiogram [ECG] [EKG]; Z95.5 Presence of coronary angioplasty implant and graft
CPT/HCPCS: 36415; 80048; 82088; 82384; 83835; 84439; 84443; 84585; 85025; 93923

== ENCOUNTER 2025-03-24 13:46 | Outpatient (CLI) | payer MEDICARE, SELFPAY ==
--- NOTE | 2025-03-24 13:49 | XR_ITS ---
FINAL REPORT TECHNIQUE: Chest PA & Lateral CLINICAL HISTORY: Shortness of breath COMPARISON: None FINDINGS: 2 views of the chest were performed. The heart size is normal. The patient is status post median sternotomy. The mediastinum is otherwise within normal limits. There is no acute cardiopulmonary process. There is mild scarring at the lung bases. There are no pleural effusions. There is no pneumothorax. The bony thorax appears intact. IMPRESSION: No acute cardiopulmonary process. Reviewed, Interpreted and Dictated by Rupesh Su MD Transcribed by Leona Kendall Authenticated and [facility]
== END 2025-03-24 23:59 | disposition home or self-care (01) ==
LOC: RAD 13:47
PROVIDERS: PCP Nurse Practitioner; Visit Provider Physician Assistant
DX: I25.10 Atherosclerotic heart disease of native coronary artery without angina pectoris (principal); R06.02 Shortness of breath
CPT/HCPCS: 71046

== ENCOUNTER 2025-08-31 12:26 | Outpatient (CLI) | payer MEDICARE, SELFPAY ==
[2025-08-31 12:50] LABS: Blood Urea Nitrogen 33 mg/dl (9-20); Creatinine,Serum 1.70 mg/dl (0.66-1.25); Estimated Glomerular Filt Rate 39 ml/min (>60); GFR (African American) 47 ML/MIN (>60)
== END 2025-08-31 23:59 | disposition home or self-care (01) ==
LOC: LAB 12:28
PROVIDERS: PCP Nurse Practitioner; Visit Provider Nurse Practitioner
DX: Z01.89 Encounter for other specified special examinations (principal)
CPT/HCPCS: 36415; 82565; 84520

== ENCOUNTER 2025-09-04 13:13 | Outpatient (CLI) | payer MEDICARE, SELFPAY ==
--- NOTE | 2025-09-04 13:16 | CT_ITS ---
FINAL REPORT CLINICAL HISTORY: B/L LEG PAIN FINDINGS: CT ABDOMEN, CT PELVIS, CTA ABDOMEN, CTA PELVIS AND CTA LOWER EXTREMITY RUNOFF COMPARISON: TECHNIQUE: Thin section axial CT with IV contrast supplemented with 3D MIP reconstruction under CT Angiogram protocol This study was performed with techniques to keep radiation doses as low as reasonably achievable, (ALARA). Individualized dose reduction techniques using automated exposure control or adjustment of mA and/or kV according to the patient's size were employed. FINDINGS: CT ANGIOGRAM ABDOMEN AND PELVIS: The examination was initiated below the level of the kidneys and the infrarenal aorta and iliac vessels. No comment can be made about the central mesenteric or renal arteries. Iliac vessels show no significant stenosis, dissection or aneurysm. CTA RIGHT LOWER EXTREMITY: There is continuous femoral-popliteal runoff on the right side. The distal superficial femoral artery is narrowed and somewhat stenotic. There is distal right superficial femoral artery narrowing/stenosis, popliteal artery is widely patent. There is three-vessel runoff of the calf. CTA LEFT LOWER EXTREMITY: The femoral and popliteal vessels show no significant stenosis or occlusion. There is 2-vessel runoff in the calf, involving the posterior tibial and peroneal arteries. The anterior tibial artery occludes proximally. IMPRESSION: 1. Mild peripheral vascular disease with distal right SFA stenosis and mild left infrapopliteal vascular disease. This study was performed using automated techniques to achieve radiation exposure as low as reasonably achievable Reviewed, Interpreted and Dictated by Soledad Martinez MD Transcribed by Rach Cristina Authenticated and [facility]
--- OUTSIDE RECORDS SUMMARY | 2025-09-04 13:17 | XMS_ITS | Clinical Summary ---
Author Organization [facility] Address [address] [place] [address] Care Team Providers Care Patient Services Coordinator Name Role Phone Rhoda Hawk [employer] Primary Care Provider [phone] Allergies Active Allergy Reactions Criticality Noted Date Comments Sulfacetamide Other - please docum ent in the comment field,Unknown - Patient states they do not know rxn details Low 03/13/2017 Medications Coenzyme C19-Zipkpxv E (QUNOL ULTRA COQ10 PO) 9 Active insulin aspart (NovoLOG FLEXPEN) 100 UNIT/ML injection INJECT 50 UNITS SUBCUTANEOUSLY DIRECTED. 7 Active insulin glargine (Lantus) 100 UNIT/ML injection INJECT 60 UNIT Daily 9 Active lisinopril 2.5 MG tablet 1 (one) time each day. 0 Active Multiple Vitamins-Iron tablet 8 Active oxybutynin XL (Ditropan-XL) 15 MG 24 hr tablet 0 Active Saw Glide 450 MG capsule Take by mouth. Active cyanocobalamin (Vitamin B-12) 250 MCG tablet Take 1 tablet (250 mcg) by mouth 1 (one) time each day. Active esomeprazole (NexIUM) [address] capsule Take 1 capsule (20 mg) by mouth 1 (one) time each day before breakfast. Do not open capsule. Active Misc Natural Products (LUTEIN VISION BLEND PO) Take by mouth. Activ e GARLIC PO Take by mouth. Activ e atorvastatin (Lipitor) 10 MG tablet 2 Active gabapentin (Neurontin) 300 MG capsule 3 Active Active Problems Problem Noted Date Diagnosed Date Essential hypertension 08/15/2018 Chronic kidney disease-mineral and bone disorder 06/18/2018 Proteinuria 06/18/2018 History of hyperlipidemia 04/06/2017 Atrial fibrillation 03/19/2017 Coronary artery disease 03/19/2017 Diabetes 03/19/2017 Resolved Problems Problem Noted Date Diagnosed Date Resolved Date LUCIEN (acute kidney injury) 06/18/2018 Immunizations Immunization Administration Dates Next Due Influenza, high-dose, quadrivalent 08/27/2020, Influenza, injectable, quadrivalent, preservativ e free 10/12/2021 Pneumococcal, Unspecified 06/20/2016 Family History Medical History Relation Name Comments Cardiac disorder Father Relation Name Status Comments Father Social History Tobacco Use Types Packs/Day Years Used Date Smoking Tobacco: Former Passive Smoke Exposure: Past Smokeless Tobacco: Never Tobacco Cessation:Counseling Given: Not Answered Alcohol Use Standard Drinks/Week Comments Not Currently 0 (1 standard drink = 0.6 oz pure alcohol) Alcoholic Drinks/day: History of alcohol use PHQ-2 Answer Date Recorded Patient Health Questionnaire-2 Score 0 03/17/2024 Sex and Gender Information Value Date Recorded Sex Assigned at Not on file Legal Sex Male 8:11 PM EDT Gender Identity Not on file Sexual Orientation Not on file Last Filed Vital Signs Vital Sign Reading Time Taken Comments Blood Pressure 107/89 03/17/2024 12:58 PM EDT Pulse 83 03/17/2024 12:58 PM EDT Temperature - - Respiratory Rate 16 03/17/2024 12:58 PM EDT Oxygen Saturation 100% 03/17/2024 12:58 PM EDT Inhaled Oxygen Concentration - - Weight 71 kg (156 lb 9.6 oz) 03/17/2024 12:58 PM EDT Height 175.3 cm (5' 9 ) 06/06/2017 1:29 PM EDT Body Mass Index 23.13 06/06/2017 1:29 PM EDT Plan of Treatment Health Maintenance Due Date Last Done Comments [facility]-Medicare Annual Wellness (AWV) 1944 [facility]-Infant/Child/Adol SDOH Screenings 1944 Diabetes: Dental Exam 1954 [facility]- SDOH Screenings 1962 [facility]-Adult SDOH Screenings 1962 [facility]-DTaP,Tdap,and Td Vaccines (1 - Tdap) 1963 [facility]-Pneumococcal Vaccine: 50+ Years (1 of 2 - PCV) 1963 06/20/2016 [facility]-Zoster Vaccines (1 of 2) 1994 [facility]-Diabetes: Hemoglobin A1C 09/12/201702/2017, 03/13/2017 [facility]-RSV Vaccine: 60+ Years or (1 - 1-dose 75+ series) 2019 [facility]-Depression Screening 03/17/2025 03/17/2024 [id number] Vaccine (3 - 2024- season) 2025 10/12/2021, 02/16/2021 [facility]-Influenza Vaccine (#1) 07/13/202510/12, 08/27/2020, 08/27/2020 HPV Vaccines Aged Out No longer eligi ble based on patient's age to complete this topic [facility]-HIB Vaccines Aged Out No longer e ligible based on patient's age to complete this topic [facility]-Hepatitis A Vaccines Aged Out No longer eligible based on patient's age to complete this topic [facility]-IPV Vaccines Aged Out No longer e ligible based on patient's age to complete this topic [facility]-Rotavirus Vaccines Aged Out No lo nger eligible based on patient's age to complete this topic Procedures Procedure Name Priority Date/Time Associated Diagnosis Comments HEMOGLOBIN A1C Routine 03/15/2017 3:18 PM EDT from Last 3 Months or Most Recently Relevant to Health Maintenance Results * (ABNORMAL) Hemoglobin A1c (03/15/2017 3:18 PM EDT) Hemoglobin A1c 8.0(H) 4.7 - 6.0 % [facility] Comment: (NOTE) Glycohemoglobin Reference Range, 0 years and up: 4.7 - 6.0% . Hemoglobin A1c values of 5.7 - 6.4% indicate an increased risk for developing diabetes mellitus (prediabetes). Hemoglobin A1c values greater than or equal to 6.5% are diagnostic of diabetes mellitus. . HbA1c assay performed by an ion-exchange chromatography method that is certified traceable to the DCCT. 03/15/2017 3:18 PM EDT 03/15/2017 3:42 PM EDT us Tammi Parker MD LAB BLOOD ORDERABLES Final Resu lt [facility]QUEST from Last 3 Months or Most Recently Relevant to Health Maintenance Insurance MEDICARE Care Teams Patient Services Coordinator Relationship Specialty Start Date End Date Rhoda Hawk APRN [address] [place] [address] PCP - General 02/19/23
[2025-09-04] MEDS: 0.9 % SODIUM CHLORIDE 50 ML VIAL 100 ML IV (13:46)
[2025-09-04] MEDS: IOPAMIDOL-370 (76%);100ML BOTTLE 120 ML IV (13:46)
[2025-09-04] MEDS: SODIUM CHLORIDE 0.9% 10ML SYR (RAD ONLY) 10 ML IV (13:46)
== END 2025-09-04 23:59 | disposition home or self-care (01) ==
LOC: RAD 13:14
PROVIDERS: PCP Nurse Practitioner; Visit Provider Nurse Practitioner
DX: I70.203 Unspecified atherosclerosis of native arteries of extremities, bilateral legs (principal)
CPT/HCPCS: 73706; Q9967